=== PATIENT | female | born 1990 | race Caucasian/White ===

== ENCOUNTER 2022-02-07 10:24 | Outpatient (REF) | payer OTHER, SELFPAY ==
--- NOTE | ~2022-02-07 | XR_ITS ---
EXAMINATION: XR LUMBOSACRAL SPINE CLINICAL INFORMATION: Pain COMPARISON: None TECHNIQUE: Three views of the lumbosacral spine. FINDINGS: There is scoliosis of the lumbar spine to the left. Bone alignment is otherwise normal. No fracture or dislocation is seen. Disc spaces are normal. There may be lower lumbar spine facet arthritis. XR/XR lumbar spine 2-3V IMPRESSION: Scoliosis. Mild lower lumbar spine facet arthritis.
--- NOTE | ~2022-02-07 | XR_ITS ---
EXAMINATION: XR THORACOLUMBAR SPINE CLINICAL INFORMATION: Pain COMPARISON: None TECHNIQUE: 3 views of the thoracic spine including swimmer's view FINDINGS: There is scoliosis of the midthoracic spine to the right with apex at T7. There is curvature of the lower thoracic and upper lumbar spine to the left with apex at L2-L3. No fracture or dislocation is seen. Disc spaces are normal. Paraspinal soft tissues are normal. XR/XR thoracic spine 2V IMPRESSION: Scoliosis.
[2022-02-07 10:50] LABS: MANUAL DIFF FLAG NO
[2022-02-07 11:30] LABS: Hemoglobin 12.6 g/dl (12.0-16.0); Imm Gran Abs Auto 0.01 X10*3/uL (0.00-0.03); Imm Gran Pct Auto 0.3 % (0.0-0.4); Lymphocytes Absolute Auto 1.4 X10*3/uL (1.2-4.9); Lymphocytes Percent Auto 49.7 % (20-40); Mean Corpuscular HGB Conc 33.2 g/dl (31.0-35.0); Mean Corpuscular Volume 90.5 fL (80.0-98.0); Mean Platelet Volume 10.9 fL (9.4-12.3); Monocytes Absolute Auto 0.2 X10*3/uL (0.1-1.2); Monocytes Percent Auto 8.3 % (2-11); Neutrophils Absolute Auto 1.2 x10*3/uL (2.0-8.3); Neutrophils Percent Auto 39.7 % (45-73); Platelet Count 198 X10*3/uL (160-400); Red Cell Distribution Width 12.2 % (11.0-16.0); White Blood Count 2.9 X10*3/uL (4.8-10.8)
[2022-02-07 12:21] LABS: Anion Gap 11 (12-20); Blood Urea Nitrogen 9 mg/dL (9-16); Carbon Dioxide 23 mmol/L (22-29); Chloride 107 mmol/L (96-108); Cholesterol 143 mg/dL; Estimated Glomerular Filt Rate > 60; Glucose Fasting 79 mg/dL (60-99); HDL Cholesterol 45 mg/dL; LDL Cholesterol Calculated 89 mg/dl; Potassium 4.4 mmol/L (3.3-5.1); Sodium 137 mmol/L (135-145); Triglycerides 45 mg/dL
== END 2022-02-07 10:25 | disposition home or self-care (01) ==
LOC: HO.XRAY 10:24
PROVIDERS: Visit Provider Nurse Practitioner Family
DX: M54.9 Dorsalgia, unspecified (principal); I10 Essential (primary) hypertension; E78.00 Pure hypercholesterolemia, unspecified; Z76.89 Persons encountering health services in other specified circumstances
CPT/HCPCS: 36415; 72070; 72100; 80048; 80061; 85025

== ENCOUNTER → 2022-07-25 09:36 | Outpatient (BNVA) | payer SELFPAY | PROVIDERS: Visit Provider Internal Medicine | DX: Z02.79 Encounter for issue of other medical certificate (principal) ==

== ENCOUNTER 2022-09-24 17:07 | Observation (INO) | payer OTHER, SELFPAY ==
--- NOTE | ~2022-09-24 | US_ITS ---
EXAMINATION: US appendix CLINICAL INFORMATION: Reason for Exam RLQ ABD PAIN/FEVERS COMPARISON: None. TECHNIQUE: Targeted ultrasound of the right lower quadrant was performed utilizing a linear array transducer for evaluation of the appendix. FINDINGS: Blind-ending tubular structure in the right lower quadrant measuring up to 0.7 cm in diameter with mild hypervascularity suspicious for acute appendicitis. No increased echogenicity of the appendiceal fat or fluid collection. No free fluid identified in the right lower quadrant. US/US appendix IMPRESSION: Findings suspicious for acute appendicitis. No findings of perforation or abscess.
--- NOTE | ~2022-09-24 | CT_ITS ---
EXAMINATION: CT ABDOMEN AND PELVIS WITH CONTRAST CLINICAL INFORMATION: Right lower quadrant COMPARISON: Ultrasound performed 09/24/2022 TECHNIQUE: Multidetector volumetric images were obtained from the superior aspect of the liver through the pubic symphysis following administration 85 mL of Omnipaque 350 intravenous contrast. Sagittal and coronal reformatted images were obtained on the technologist's workstation. Oral contrast: No This CT examination was performed using dose optimization techniques as appropriate, variously including the following: *Automated exposure control *Adjustment of mA and/or kV according to patient size (this includes techniques or standardized protocols for targeted exams where dose is matched to indication/reason for exam; i.e. extremities or head) *Use of iterative reconstruction technique DLP: 821 mGy-cm FINDINGS: LUNG BASES: The visualized lung bases are unremarkable. LIVER, GALLBLADDER, AND BILIARY TREE: The liver is normal in size, shape, and attenuation. A small 1 cm cyst is noted just beneath the dome of the right hemidiaphragm. No focal hepatic lesion or biliary ductal dilatation is present. The gallbladder is unremarkable with no evidence of radiopaque gallstones, gallbladder wall thickening, or obvious pericholecystic inflammatory changes. PANCREAS: Unremarkable. SPLEEN: Unremarkable. ADRENAL GLANDS: Unremarkable. KIDNEYS AND URETERS: The kidneys are normal in size, shape, and attenuation. No hydronephrosis, hydroureter, or calculi seen. No perinephric stranding. BLADDER: Unremarkable. GASTROINTESTINAL TRACT: The small and large bowel are unremarkable. The appendix is mildly enlarged at 7 to 8 mm in size. There is no air within the appendix. There is no appendicolith. No periappendiceal inflammatory changes are seen. ABDOMINAL WALL: No significant hernia is appreciated. LYMPH NODES: No retroperitoneal lymphadenopathy VASCULAR: Unremarkable. The proximal left ovarian vein is dilated with reflux demonstrated. No large pelvic varices are seen. PELVIC VISCERA: The uterus and adnexa are unremarkable. The right ovary, there is enhancing small ovoid collapsed structure which may be a ruptured cyst measuring about 2 cm in size. No free intraperitoneal fluid. OSSEOUS STRUCTURES: Scoliosis convex to left. CT/CT abdomen pelvis w IV con IMPRESSION: 1. The appendix is mildly enlarged at 7 to 8 mm in size without air in the lumen. There is no appendicolith or periappendiceal inflammatory changes seen. Findings may represent early appendicitis. 2. Dilated proximal left ovarian vein with reflux. 3. Probable ruptured right ovarian cyst. 4. Incidental note made of benign hepatic cyst, scoliosis and degenerative changes in the spine. Fleischner guidelines were followed.
--- NOTE | ~2022-09-24 | US_ITS ---
EXAMINATION: US PELVIS CLINICAL INFORMATION: Right lower quadrant pain and fevers COMPARISON: Appendiceal ultrasound performed the same day TECHNIQUE: Ultrasound of the pelvis is performed using both transabdominal and transvaginal transducers along with Doppler. Transvaginal imaging is performed due to inadequate visualization transabdominally. FINDINGS: Uterus: The uterus is anteverted and measures 10.9 x 5.8 x 5.3 cm. Couple small nabothian cysts noted in the cervix. The double wall endometrial thickness is 1.7 mm. The uterus is smooth in contour and has normal myometrial echogenicity. No visible fibroid. Adnexa: Both ovaries are visualized. There is normal color flow to the adnexa. There is no ovarian torsion. There is no pelvic ascites or fluid collection. Right ovary measures 3.2 x 2.3 x 2.1, volume 8.1 mL. No cyst or mass identified. Left ovary measures 2.7 x 2.1 x 1.8, volume 5.3 mL. No cyst or mass identified. US/US pelvic ovarian doppler IMPRESSION: 1. Normal uterus and ovaries. No adnexal cyst or mass. No evidence of ovarian torsion. 2. No free pelvic fluid.
--- NOTE | ~2022-09-24 | US_ITS ---
EXAMINATION: US PELVIS CLINICAL INFORMATION: Right lower quadrant pain and fevers COMPARISON: Appendiceal ultrasound performed the same day TECHNIQUE: Ultrasound of the pelvis is performed using both transabdominal and transvaginal transducers along with Doppler. Transvaginal imaging is performed due to inadequate visualization transabdominally. FINDINGS: Uterus: The uterus is anteverted and measures 10.9 x 5.8 x 5.3 cm. Couple small nabothian cysts noted in the cervix. The double wall endometrial thickness is 1.7 mm. The uterus is smooth in contour and has normal myometrial echogenicity. No visible fibroid. Adnexa: Both ovaries are visualized. There is normal color flow to the adnexa. There is no ovarian torsion. There is no pelvic ascites or fluid collection. Right ovary measures 3.2 x 2.3 x 2.1, volume 8.1 mL. No cyst or mass identified. Left ovary measures 2.7 x 2.1 x 1.8, volume 5.3 mL. No cyst or mass identified. US/US pelvic complete IMPRESSION: 1. Normal uterus and ovaries. No adnexal cyst or mass. No evidence of ovarian torsion. 2. No free pelvic fluid.
[2022-09-24 17:23] VITALS: BP 128/79; PULSE 83; RESP 18; TEMP 36.7; O2SAT 100; BMI 20.2
--- NOTE | 2022-09-24 17:25 | ED_ITS ---
HPI - Abdominal Pain General Chief Complaint: Abdominal Pain <JABARI Cervantes - Last Filed: 09/24/22 17:28> Stated Complaint: abd pain <JABARI Cervantes - Last Filed: 09/24/22 17:28> Time Seen by Provider: 09/24/22 19:14 <JABARI Cervantes - Last Filed: 09/24/22 17:28> Source: patient <Daniel Reyes MD - Last Filed: 09/24/22 23:01> Limitations: no limitations <Daniel Reyes MD - Last Filed: 09/24/22 23:01> History of Present Illness HPI narrative: This is a 31-year-old female who complains of pain in her right lower abdomen since yesterday. Patient has had a fever. She has had poor appetite today. Pain is worse with certain movements and cough. She denies any nausea vomiting. She denies any dysuria or urinary frequency. She denies any constipation or diarrhea. She denies any significant past medical history. <Daniel Reyes MD - Last Filed: 09/24/22 23:01> Related Data Home Medications: Previous Rx's Medication Instructions Recorded naproxen 500 mg tablet 500 mg PO BID PRN pain #20 tabs 02/03/22 <JABARI Cervantes - Last Filed: 09/24/22 17:28> Allergies/Adverse Reactions: Allergies Allergy/AdvReac Type Severity Reaction Status Date / Time No Known Allergies Allergy Verified 02/03/22 15:14 <JABARI Cervantes - Last Filed: 09/24/22 17:28> Review of Systems Review of Systems Yes all other systems are reviewed and are negative <Daniel Reyes MD - Last Filed: 09/24/22 23:01> Constitutional: Reports as per HPI and Reports fever(s) <Daniel Reyes MD - Last Filed: 09/24/22 23:01> Eyes: Reports as per HPI and Reports no additional eye complaints <Daniel Reyes MD - Last Filed: 09/24/22 23:01> Reports system reviewed and no additional complaints, except as documented, Reports as per HPI, Denies nasal congestion, Denies nasal discharge and Denies sore throat <Daniel Reyes MD - Last Filed: 09/24/22 23:01> Cardiovascular: Reports as per HPI, Denies chest pain and Denies dyspnea <Daniel Reyes MD - Last Filed: 09/24/22 23:01> Respiratory: Reports as per HPI, Denies cough and Denies dyspnea <Daniel Reyes MD - Last Filed: 09/24/22 23:01> Gastrointestinal: Reports as per HPI, Reports abdominal pain, Denies diarrhea and Denies vomiting <Daniel Reyes MD - Last Filed: 09/24/22 23:01> Genitourinary: Reports as per HPI, Denies hematuria, Denies urinary frequency and Denies dysuria <Daniel Reyes MD - Last Filed: 09/24/22 23:01> Musculoskeletal: Reports no additional musculoskeletal complaints and Denies numbness <Daniel Reyes MD - Last Filed: 09/24/22 23:01> Skin/Breast: Reports as per HPI and Denies rash <Daniel Reyes MD - Last Filed: 09/24/22 23:01> Reports as per HPI, Denies focal weakness and Denies numbness <Daniel Reyes MD - Last Filed: 09/24/22 23:01> Psychiatric: Reports no additional psychiatric complaints and Reports as per HPI <Daniel Reyes MD - Last Filed: 09/24/22 23:01> Endocrine: Reports no additional endocrine complaints and Reports as per HPI <Daniel Reyes MD - Last Filed: 09/24/22 23:01> Hematologic/Lymphatic: Reports no additional hematologic/lymphatic complaints, Reports as per HPI and Reports other (No peripheral edema) <Daniel Reyes MD - Last Filed: 09/24/22 23:01> [facility] Past Medical History Medical History: Medical History (Updated 09/24/22 @ 23:01 by Daniel Reyes MD) Right lower quadrant pain <JABARI Cervantes - Last Filed: 09/24/22 17:28> Surgical History: Surgical History (Updated 02/03/22 @ 14:53 by CHELSIE Nielson) History of tubal ligation <JABARI Cervantes - Last Filed: 09/24/22 17:28> Social History Social History: Social History (Updated 02/03/22 @ 14:46 by CHELSIE Nielson) Housing: Apartment Alcohol intake: never Patient Tobacco Use Status: Never used Tobacco Smoked in Last 30 Days: No e-Cigarette/Vaping Use: Never Used Second Hand Smoke Exposure: No Advance Directives: No Advance Directives Information Provided: Yes service: No Current occupational status: unemployed Cognitive needs: No Hearing needs: No Vision needs: No <JABARI Cervantes - Last Filed: 09/24/22 17:28> Physical Exam ED Vital Signs: Vital Signs - 24 hr 09/24/22 17:23 09/24/22 20:09 09/24/22 22:42 Temperature 98.1 F 99.3 F 98.2 F Pulse Rate 83 84 72 Respiratory Rate 18 17 15 Blood Pressure 128/79 120/83 116/74 Pulse Oximetry 100 98 98 Oxygen Delivery Method Room Air Room Air Room Air BMI result Body Mass Index 20.2 <JABARI Cervantes - Last Filed: 09/24/22 17:28> Vital Signs - 24 hr 09/24/22 17:23 09/24/22 20:09 09/24/22 22:42 Temperature 98.1 F 99.3 F 98.2 F Pulse Rate 83 84 72 Respiratory Rate 18 17 15 Blood Pressure 128/79 120/83 116/74 Pulse Oximetry 100 98 98 Oxygen Delivery Method Room Air Room Air Room Air BMI result Body Mass Index 20.2 <Daniel Reyes MD - Last Filed: 09/24/22 23:01> Const General: no acute distress <Daniel Reyes MD - Last Filed: 09/24/22 23:01> Orientation/consciousness: patient oriented x3 <Daniel Reyes MD - Last Filed: 09/24/22 23:01> HENMT Head: Yes normal to inspection <Daniel Reyes MD - Last Filed: 09/24/22 23:01> General nose exam: Normal external nose present <Daniel Reyes MD - Last Filed: 09/24/22 23:01> Mouth: moist mucous membranes <Daniel Reyes MD - Last Filed: 09/24/22 23:01> Throat: Yes posterior oropharynx normal, Yes tonsils normal and Yes uvula midline <Daniel Reyes MD - Last Filed: 09/24/22 23:01> Eyes Eyelids: Yes eyelids normal <Daniel Reyes MD - Last Filed: 09/24/22 23:01> Conjunctivae: conjunctivae normal <Daniel Reyes MD - Last Filed: 09/24/22 23:01> Pupils: Equal, round and reactive pupils present <Daniel Reyes MD - Last Filed: 09/24/22 23:> Neck Neck: Yes supple <Daniel Reyes MD - Last Filed: 09/24/22 23:> Resp Effort & Inspection: normal respiratory effort <Daniel Reyes MD - Last Filed: 09/24/22 23:> Auscultation: clear to auscultation bilaterally <Daniel Reyes MD - Last Filed: 09/24/22 23:> Cardio Rate: regular rate <Daniel Reyes MD - Last Filed: 09/24/22 23:> Rhythm: regular rhythm <Daniel Reyes MD - Last Filed: 09/24/22 23:> Heart sounds: S1 normal heart sound present, S2 normal heart sound present, no gallops, no murmurs and no rubs <Daniel Reyes MD - Last Filed: 09/24/22 23:> GI Inspection: No distended <Daniel Reyes MD - Last Filed: 09/24/22 23:> Palpation (GI): Soft to palpation and Tenderness to palpation present (GI) in the RLQ and at McBurney's point; obturator sign negative and with no rebound tenderness <Daniel Reyes MD - Last Filed: 09/24/22 23:> Auscultation: Hypoactive bowel sounds present <Daniel Reyes MD - Last Filed: 09/24/22 23:> Skin General skin exam: other (Warm and dry) <Daniel Reyes MD - Last Filed: 09/24/22 23:> Neuro General: patient oriented x3 and CN's II-XI intact bilaterally <Daniel Reyes MD - Last Filed: 09/24/22 23:> Cranial nerves: Yes Equal, round and reactive pupils present <Daniel Reyes MD - Last Filed: 09/24/22 23:> Extrem General: Yes no pedal edema <Daniel Reyes MD - Last Filed: 09/24/22 23:01> Psych Affect: normal affect <Daniel Reyes MD - Last Filed: 09/24/22 23:> Attitude: cooperative <Daniel Reyes MD - Last Filed: 09/24/22 23:01> Course Course Course Narrative: KEMAL-17:30PM - 31yoF who is Macedonian-speaking presenting to the ED with complaints of right lower quadrant abdominal pain with fevers up to 102.0, chills and nausea since last night. Worse with walking or palpation. She reports she still has her appendix. She reports she does have a slight cough and her daughter also has a slight cough. She denies any other symptoms related to this. Plan: Will obtain labs, appendix ultrasound, ovarian/Doppler ultrasound, UA, COVID/RSV/flu swab. Patient will be sent back to the waiting room to be evaluated in the ED for further evaluation treatment. <JABARI Cervantes - Last Filed: 09/24/22 17:28> Medical Decision Making Medical Decision Making MDM Narrative: Patient with right lower quadrant pain since yesterday. Patient has had a fever, did test COVID positive. Patient denied knowing that she had COVID. Patient has had poor appetite today and does have tenderness in the right lower quadrant, most pronounced at McBurney's point. White blood cell count is normal. Ultrasound did show equivocal evidence for appendicitis. CT scan showed possible early appendicitis. There is no appendicolith no air in the appendix only mild dilatation. Ultrasound of the pelvis did not show any ovarian cysts or free fluid, though the CT report mentioned possible ruptured right ovarian cyst. Surgical consultation was ordered, and Dr. Key has evaluated the patient and the patient is to be admitted for observation. Patient does have 1+ leukocyte esterase on her urine dip but only 0-2 white blood cells per high-power field, has no urinary symptoms, do not believe she has UTI. <Daniel Reyes MD - Last Filed: 09/24/22 23:01> Differential Diagnosis Appendicitis, mesenteric adenitis, ureteral colic, ruptured ovarian cyst, PID, cervicitis, UTI, pyelonephritis <Daniel Reyes MD - Last Filed: 09/24/22 23:01> Admission/Observation Consideration of admission/observation: Escalation of care including admission/observation considered <Daniel Reyes MD - Last Filed: 09/24/22 23:01> Consult Healthcare Provider Management of the patient was discussed with: [employer] (General surgery) <Daniel Reyes MD - Last Filed: 09/24/22 23:01> Lab Data MDM Lab Attestation statement: I reviewed the patient's lab results. <Daniel Reyes MD - Last Filed: 09/24/22 23:01> Result Diagrams: : 09/24/22 17:43 09/24/22 17:43 <JABARI Cervantes - Last Filed: 09/24/22 17:28> Labs: Lab Results 09/24/22 09/24/22 09/24/22 Range/Units 17:43 17:43 17:43 WBC 4.4 L (4.8-10.8) X10*3/uL RBC 4.24 (4.20-5.50) X10*6/uL Hgb 12.5 (12.0-16.0) g/dl Hct 37.5 (37.0-47.0) % MCV 88.4 (80.0-98.0) fL MCH 29.5 (27.0-33.0) pg MCHC 33.3 (31.0-35.0) g/dl RDW 12.0 (11.0-16.0) % Plt Count 184 (160-400) X10*3/uL MPV 10.1 (9.4-12.3) fL Immature Gran % (Auto) 0.2 (0.0-0.4) % Neut % (Auto) 51.7 (45-73) % Lymph % (Auto) 36.1 (20-40) % Johnson % (Auto) 5.2 (2-11) % Eos % (Auto) 5.9 H (0-4) % Baso % (Auto) 0.9 (0-2) % Lymph # (Auto) 1.6 (1.2-4.9) X10*3/uL Johnson # (Auto) 0.2 (0.1-1.2) X10*3/uL Eos # (Auto) 0.3 (0.0-0.4) X10*3/uL Baso # (Auto) 0.0 (0.0-0.2) X10*3/uL Abs Immat Gran (auto) 0.01 (0.00-0.03) X10*3/uL Absolute Neuts (auto) 2.3 (2.0-8.3) x10*3/uL Absolute Nucleated RBC 0.000 (0.0-0.012) X10*3/uL Nucleated RBC % (auto) 0.0 (0.0-0.2) /100WBC PT 11.5 (10.0-13.1) SEC INR 1.0 (0.9-1.1) Sodium 138 (135-145) mmol/L Potassium 3.7 (3.3-5.1) mmol/L Chloride 108 (96-108) mmol/L Carbon Dioxide 24 (22-29) mmol/L Anion Gap 10 L (12-20) BUN 12 (9-16) mg/dL Creatinine 0.80 (0.5-1.4) mg/dL Estim Creat Clear Calc 95.8 Estimated GFR > 60 Random Glucose 71 (60-115) mg/dL Calcium 8.3 L D (8.4-10.2) mg/dL Magnesium 2.1 (1.6-2.6) mg/dL Total Bilirubin 0.2 (0.0-1.0) mg/dL AST 14 (5-31) U/L ALT 10 (0-31) U/L Alkaline Phosphatase 61 (39-117) U/L Total Protein 6.6 (6.5-8.0) g/dL Albumin 3.9 (3.5-5.0) g/dL Lipase 12 (8-78) U/L Beta HCG, Quant < 2 mIU/mL Urine Color Urine Appearance Urine pH (5.0-9.0) Ur Specific [place] (1.005-1.025) Urine Protein (Neg-Trace) mg/dL Urine Glucose (UA) (Negative) mg/dL Urine Ketones (Negative) mg/dL Urine Blood (Negative) Urine Nitrite (Negative) Ur Leukocyte Esterase (Negative) Urine RBC (0-2) /HPF Urine WBC (0-5) /HPF Ur Squamous Epith Cells (0-2) /HPF Urine Bacteria (None Seen) Hyaline Casts (0-2) /LPF Influenza Type A (PCR) (Negative) Influenza Type B (PCR) (Negative) RSV RNA Qual (PCR) (Negative) SARS-CoV-2 RNA (RT-PCR) (Negative) 09/24/22 09/24/22 Range/Units 17:43 17:43 WBC (4.8-10.8) X10*3/uL RBC (4.20-5.50) X10*6/uL Hgb (12.0-16.0) g/dl Hct (37.0-47.0) % MCV (80.0-98.0) fL MCH (27.0-33.0) pg MCHC (31.0-35.0) g/dl RDW (11.0-16.0) % Plt Count (160-400) X10*3/uL MPV (9.4-12.3) fL Immature Gran % (Auto) (0.0-0.4) % Neut % (Auto) (45-73) % Lymph % (Auto) (20-40) % Johnson % (Auto) (2-11) % Eos % (Auto) (0-4) % Baso % (Auto) (0-2) % Lymph # (Auto) (1.2-4.9) X10*3/uL Johnson # (Auto) (0.1-1.2) X10*3/uL Eos # (Auto) (0.0-0.4) X10*3/uL Baso # (Auto) (0.0-0.2) X10*3/uL Abs Immat Gran (auto) (0.00-0.03) X10*3/uL Absolute Neuts (auto) (2.0-8.3) x10*3/uL Absolute Nucleated RBC (0.0-0.012) X10*3/uL Nucleated RBC % (auto) (0.0-0.2) /100WBC PT (10.0-13.1) SEC INR (0.9-1.1) Sodium (135-145) mmol/L Potassium (3.3-5.1) mmol/L Chloride (96-108) mmol/L Carbon Dioxide (22-29) mmol/L Anion Gap (12-20) BUN (9-16) mg/dL Creatinine (0.5-1.4) mg/dL Estim Creat Clear Calc Estimated GFR Random Glucose (60-115) mg/dL Calcium (8.4-10.2) mg/dL Magnesium (1.6-2.6) mg/dL Total Bilirubin (0.0-1.0) mg/dL AST (5-31) U/L ALT (0-31) U/L Alkaline Phosphatase (39-117) U/L Total Protein (6.5-8.0) g/dL Albumin (3.5-5.0) g/dL Lipase (8-78) U/L Beta HCG, Quant mIU/mL Urine Color Yellow Urine Appearance Cloudy Urine pH 5.5 (5.0-9.0) Ur Specific [place] 1.015 (1.005-1.025) Urine Protein Trace (Neg-Trace) mg/dL Urine Glucose (UA) Negative (Negative) mg/dL Urine Ketones Negative (Negative) mg/dL Urine Blood Negative (Negative) Urine Nitrite Negative (Negative) Ur Leukocyte Esterase Small (1+) H (Negative) Urine RBC 0-2 (0-2) /HPF Urine WBC 0-5 (0-5) /HPF Ur Squamous Epith Cells 3-5 (0-2) /HPF Urine Bacteria None Seen (None Seen) Hyaline Casts 3-5 (0-2) /LPF Influenza Type A (PCR) NEGATIVE (Negative) Influenza Type B (PCR) NEGATIVE (Negative) RSV RNA Qual (PCR) NEGATIVE (Negative) SARS-CoV-2 RNA (RT-PCR) POSITIVE A (Negative) <JABARI Cervantes - Last Filed: 09/24/22 17:28> Lab Results 09/24/22 09/24/22 09/24/22 Range/Units 17:43 17:43 17:43 WBC 4.4 L (4.8-10.8) X10*3/uL RBC 4.24 (4.20-5.50) X10*6/uL Hgb 12.5 (12.0-16.0) g/dl Hct 37.5 (37.0-47.0) % MCV 88.4 (80.0-98.0) fL MCH 29.5 (27.0-33.0) pg MCHC 33.3 (31.0-35.0) g/dl RDW 12.0 (11.0-16.0) % Plt Count 184 (160-400) X10*3/uL MPV 10.1 (9.4-12.3) fL Immature Gran % (Auto) 0.2 (0.0-0.4) % Neut % (Auto) 51.7 (45-73) % Lymph % (Auto) 36.1 (20-40) % Johnson % (Auto) 5.2 (2-11) % Eos % (Auto) 5.9 H (0-4) % Baso % (Auto) 0.9 (0-2) % Lymph # (Auto) 1.6 (1.2-4.9) X10*3/uL Johnson # (Auto) 0.2 (0.1-1.2) X10*3/uL Eos # (Auto) 0.3 (0.0-0.4) X10*3/uL Baso # (Auto) 0.0 (0.0-0.2) X10*3/uL Abs Immat Gran (auto) 0.01 (0.00-0.03) X10*3/uL Absolute Neuts (auto) 2.3 (2.0-8.3) x10*3/uL Absolute Nucleated RBC 0.000 (0.0-0.012) X10*3/uL Nucleated RBC % (auto) 0.0 (0.0-0.2) /100WBC PT 11.5 (10.0-13.1) SEC INR 1.0 (0.9-1.1) Sodium 138 (135-145) mmol/L Potassium 3.7 (3.3-5.1) mmol/L Chloride 108 (96-108) mmol/L Carbon Dioxide 24 (22-29) mmol/L Anion Gap 10 L (12-20) BUN 12 (9-16) mg/dL Creatinine 0.80 (0.5-1.4) mg/dL Estim Creat Clear Calc 95.8 Estimated GFR > 60 Random Glucose 71 (60-115) mg/dL Calcium 8.3 L D (8.4-10.2) mg/dL Magnesium 2.1 (1.6-2.6) mg/dL Total Bilirubin 0.2 (0.0-1.0) mg/dL AST 14 (5-31) U/L ALT 10 (0-31) U/L Alkaline Phosphatase 61 (39-117) U/L Total Protein 6.6 (6.5-8.0) g/dL Albumin 3.9 (3.5-5.0) g/dL Lipase 12 (8-78) U/L Beta HCG, Quant < 2 mIU/mL Urine Color Urine Appearance Urine pH (5.0-9.0) Ur Specific [place] (1.005-1.025) Urine Protein (Neg-Trace) mg/dL Urine Glucose (UA) (Negative) mg/dL Urine Ketones (Negative) mg/dL Urine Blood (Negative) Urine Nitrite (Negative) Ur Leukocyte Esterase (Negative) Urine RBC (0-2) /HPF Urine WBC (0-5) /HPF Ur Squamous Epith Cells (0-2) /HPF Urine Bacteria (None Seen) Hyaline Casts (0-2) /LPF Influenza Type A (PCR) (Negative) Influenza Type B (PCR) (Negative) RSV RNA Qual (PCR) (Negative) SARS-CoV-2 RNA (RT-PCR) (Negative) 09/24/22 09/24/22 Range/Units 17:43 17:43 WBC (4.8-10.8) X10*3/uL RBC (4.20-5.50) X10*6/uL Hgb (12.0-16.0) g/dl Hct (37.0-47.0) % MCV (80.0-98.0) fL MCH (27.0-33.0) pg MCHC (31.0-35.0) g/dl RDW (11.0-16.0) % Plt Count (160-400) X10*3/uL MPV (9.4-12.3) fL Immature Gran % (Auto) (0.0-0.4) % Neut % (Auto) (45-73) % Lymph % (Auto) (20-40) % Johnson % (Auto) (2-11) % Eos % (Auto) (0-4) % Baso % (Auto) (0-2) % Lymph # (Auto) (1.2-4.9) X10*3/uL Johnson # (Auto) (0.1-1.2) X10*3/uL Eos # (Auto) (0.0-0.4) X10*3/uL Baso # (Auto) (0.0-0.2) X10*3/uL Abs Immat Gran (auto) (0.00-0.03) X10*3/uL Absolute Neuts (auto) (2.0-8.3) x10*3/uL Absolute Nucleated RBC (0.0-0.012) X10*3/uL Nucleated RBC % (auto) (0.0-0.2) /100WBC PT (10.0-13.1) SEC INR (0.9-1.1) Sodium (135-145) mmol/L Potassium (3.3-5.1) mmol/L Chloride (96-108) mmol/L Carbon Dioxide (22-29) mmol/L Anion Gap (12-20) BUN (9-16) mg/dL Creatinine (0.5-1.4) mg/dL Estim Creat Clear Calc Estimated GFR Random Glucose (60-115) mg/dL Calcium (8.4-10.2) mg/dL Magnesium (1.6-2.6) mg/dL Total Bilirubin (0.0-1.0) mg/dL AST (5-31) U/L ALT (0-31) U/L Alkaline Phosphatase (39-117) U/L Total Protein (6.5-8.0) g/dL Albumin (3.5-5.0) g/dL Lipase (8-78) U/L Beta HCG, Quant mIU/mL Urine Color Yellow Urine Appearance Cloudy Urine pH 5.5 (5.0-9.0) Ur Specific [place] 1.015 (1.005-1.025) Urine Protein Trace (Neg-Trace) mg/dL Urine Glucose (UA) Negative (Negative) mg/dL Urine Ketones Negative (Negative) mg/dL Urine Blood Negative (Negative) Urine Nitrite Negative (Negative) Ur Leukocyte Esterase Small (1+) H (Negative) Urine RBC 0-2 (0-2) /HPF Urine WBC 0-5 (0-5) /HPF Ur Squamous Epith Cells 3-5 (0-2) /HPF Urine Bacteria None Seen (None Seen) Hyaline Casts 3-5 (0-2) /LPF Influenza Type A (PCR) NEGATIVE (Negative) Influenza Type B (PCR) NEGATIVE (Negative) RSV RNA Qual (PCR) NEGATIVE (Negative) SARS-CoV-2 RNA (RT-PCR) POSITIVE A (Negative) <Daniel Reyes MD - Last Filed: 09/24/22 23:01> Radiology Impression Discussion of test interpretation with radiology: I have reviewed the radiologist's reading. <Daniel Reyes MD - Last Filed: 09/24/22 23:01> Radiologist Impression: Ultrasound appendix: FINDINGS: Blind-ending tubular structure in the right lower quadrant measuring up to 0.7 cm in diameter with mild hypervascularity suspicious for acute appendicitis. No increased echogenicity of the appendiceal fat or fluid collection. No free fluid identified in the right lower quadrant. Ultrasound pelvis: IMPRESSION: 1.? Normal uterus and ovaries. No adnexal cyst or mass. No evidence of ovarian torsion. 2.? No free pelvic fluid. ? US/US appendix IMPRESSION: Findings suspicious for acute appendicitis. No findings of perforation or abscess. CT abdomen pelvis with IV contrast IMPRESSION: 1.? The appendix is mildly enlarged at 7 to 8 mm in size without air in the lumen. There is no appendicolith or periappendiceal inflammatory changes seen. Findings may represent early appendicitis. 2.? Dilated proximal left ovarian vein with reflux. 3.? Probable ruptured right ovarian cyst. 4.? Incidental note made of benign hepatic cyst, scoliosis and degenerative changes in the spine. <Daniel Reyes MD - Last Filed: 09/24/22 23:01> Prescription Management I considered prescription management with: Pain Medication and Antibiotic <Daniel Reyes MD - Last Filed: 09/24/22 23:01> Medications Administered Generic Name Dose Route Start Last Admin Trade Name Freq PRN Reason Stop Dose Admin Lactated Ringer's 1,000 mls @ 100 mls/hr 09/24/22 22:45 09/24/22 22:41 Lr IVCONT 100 mls/hr .Q10H ELAINA Administration Discontinued Medications Generic Name Dose Route Start Last Admin Trade Name Freq PRN Reason Stop Dose Admin Iohexol 100 ml 09/24/22 20:31 09/24/22 20:32 Iohexol 350 Mg/Ml 100 Ml Infus..Btl IV 09/24/22 20:32 85 ml ONCE ONE Administration <JABARI Cervantes - Last Filed: 09/24/22 17:28> Medications Administered Generic Name Dose Route Start Last Admin Trade Name Freq PRN Reason Stop Dose Admin Lactated Ringer's 1,000 mls @ 100 mls/hr 09/24/22 22:45 09/24/22 22:41 Lr IVCONT 100 mls/hr .Q10H ELAINA Administration Discontinued Medications Generic Name Dose Route Start Last Admin Trade Name Freq PRN Reason Stop Dose Admin Iohexol 100 ml 09/24/22 20:31 09/24/22 20:32 Iohexol 350 Mg/Ml 100 Ml Infus..Btl IV 09/24/22 20:32 85 ml ONCE ONE Administration <Daniel Reyes MD - Last Filed: 09/24/22 23:01> Discharge Plan Discharge Clinical Impression: Abdominal pain, right lower quadrant, COVID <JABARI Cervantes - Last Filed: 09/24/22 17:28> Patient Disposition: Admitted as Observation <JABARI Cervantes - Last Filed: 09/24/22 17:28> Prescriptions: No Action naproxen 500 mg tablet 500 mg PO BID PRN (Reason: pain) Qty: 20 0RF <JABARI Cervantes - Last Filed: 09/24/22 17:28>
[2022-09-24 17:49] LABS: MANUAL DIFF FLAG NO
[2022-09-24 17:51] LABS: Appearance Urine Cloudy; Basophils Percent Auto 0.9 % (0-2); Color Urine Yellow; Eosinophils Absolute Auto 0.3 X10*3/uL (0.0-0.4); Eosinophils Percent Auto 5.9 % (0-4); Glucose Urine UA Negative (Negative); Hematocrit 37.5 % (37.0-47.0); Hemoglobin 12.5 g/dl (12.0-16.0); Imm Gran Abs Auto 0.01 X10*3/uL (0.00-0.03); Imm Gran Pct Auto 0.2 % (0.0-0.4); Leukocyte Esterase Urine Small (1+) (Negative); Lymphocytes Absolute Auto 1.6 X10*3/uL (1.2-4.9); Lymphocytes Percent Auto 36.1 % (20-40); Mean Corpuscular HGB Conc 33.3 g/dl (31.0-35.0); Mean Corpuscular Hemoglobin 29.5 pg (27.0-33.0); Mean Corpuscular Volume 88.4 fL (80.0-98.0); Mean Platelet Volume 10.1 fL (9.4-12.3); Monocytes Absolute Auto 0.2 X10*3/uL (0.1-1.2); Monocytes Percent Auto 5.2 % (2-11); Neutrophils Absolute Auto 2.3 x10*3/uL (2.0-8.3); Neutrophils Percent Auto 51.7 % (45-73); Nitrite Urine Negative (Negative); PH 5.5 (5.0-9.0); Platelet Count 184 X10*3/uL (160-400); Red Blood Count 4.24 X10*6/uL (4.20-5.50); Specific Gravity - Urine 1.015 (1.005-1.025); UMIC TRIGGER UACC YES; Urine Blood Negative (Negative); Urine Ketones Negative (Negative); Urine Protein Trace mg/dL (Neg-Trace); White Blood Count 4.4 X10*3/uL (4.8-10.8)
--- OUTSIDE RECORDS SUMMARY | 2022-09-24 17:51 | XMS_ITS | Continuity of Care Document ---
:1990 Author Organization [facility] ic Address [address] [place] [id number]- Care Team Providers Name Role Phone Shawnee Love Primary Care Physician Encounter [facility] Date(s): 05/05/20 - 06/04/[address] [address]- [facility] Allergies, Adverse Reactions, Alerts Substance Reaction Severity Status NKA Active Medications doxylamine 25 mg oral tablet See Instructions, one half tablet 2 x day, # 8 tablet, 1 Refills, Maintenance, 05/26/20 13:38:00 EDT, [facility] #[id number] Start Date: 05/26/20 Status: OrderedPrenatal Multivitamins By Mouth, Daily, 0 Refills, Maintenance, 04/21/20 16:06:00 EDT Start Date: 04/21/20 Status: Orderedpyridoxine 25 mg oral tablet 1 tablet = 25 mg, By Mouth, 3 times a day, for 7 days, # 21 tablet, 1 Refills, Acute 06/09/20 13:38:00 EDT, 05/26/20 13:38:00 EDT Start Date: 05/26/20 Stop Date: 06/09/20 Status: Ordered Problem List Condition Effective Dates Status Health Status Informant Scoliosis(Confirmed) Active Social History Social History Type Response Smoking Status Never (less than 100 in life time) entered on: 04/21/20 Sex Female
--- OUTSIDE RECORDS SUMMARY | 2022-09-24 17:51 | XMS_ITS | Continuity of Care Document ---
:1990 Author Organization [facility] Address [address] [place] [id number]- Care Team Providers Name Role Phone Shawnee Love Primary Care Physician Encounter [facility] Date(s): 05/13/20 - 06/12/[address] [address]- [facility] Allergies, Adverse Reactions, Alerts Substance Reaction Severity Status NKA Active Medications doxylamine 25 mg oral tablet See Instructions, one half tablet 2 x day, # 8 tablet, 1 Refills, Maintenance, 05/26/20 13:38:00 EDT, [facility] #[id number] Start Date: 05/26/20 Status: OrderedPrenatal Multivitamins By Mouth, Daily, 0 Refills, Maintenance, 04/21/20 16:06:00 EDT Start Date: 04/21/20 Status: Ordered Problem List Condition Effective Dates Status Health Status Informant Scoliosis(Confirmed) Active Social History Social History Type Response Smoking Status Never (less than 100 in life time) entered on: 04/21/20 Sex Female
--- OUTSIDE RECORDS SUMMARY | 2022-09-24 17:51 | XMS_ITS | Continuity of Care Document ---
:1990 Author Organization [facility] Address [address] [place] [phone]- Care Team Providers Name Role Phone Po Kari METCALF Primary Care Physician Encounter [facility] [place] Date(s): 01/14/22 - 02/19/[address] [address] Attending Physician: Connie Navarrete MD Admitting Physician: Connie Navarrete MD Referring Physician: Connie Navarrete MD Allergies, Adverse Reactions, Alerts No Known Allergies Immunizations Given and Recorded Vaccine Date Status Refusal Reason tetanus/diphtheria/pertussis, acel(Tdap) 10/21/20 Given influenza virus vaccine, inactivated 07/21/20 Given Medications acetaminophen 325 mg oral tablet 650 mg, 2, tablet, By Mouth, Every 4 hours, PRN, # 50 tablet, Refills 1, Tot. Refills 1, Maintenance, Pain , Mild, 12/14/20 8:06:00 EST, Route to Pharmacy Electronically, [facility]/pharmacy #[id number], Partial fill upon patient request if the prescription is for... Start Date: 12/14/20 Status: Orderedacetaminophen 325 mg oral tablet 650 mg, By Mouth, Every 6 hours, PRN, not to exceed 4000 mg/day, # 50 tablet, Refills 0, Tot. Refills 0, Maintenance, Pain , Mild, 02/04/21 13:42:00 EDT, Route to Pharmacy Electronically, [facility]/pharmacy #[id number], Partial fill upon patient request if the pr... Start Date: 02/04/21 Status: Ordereddocusate sodium 100 mg oral capsule 1 capsule = 100 mg, By Mouth, 2 times a day, PRN Constipation, # 60 capsule, 0 Refills, Maintenance,12/14/20 8:04:00 EST, Capsule, [facility]/pharmacy #[id number], Partial fill upon patient request if the prescription is for a schedule II opioid drug., 170, cm, 0... Start Date: 12/14/20 Status: Orderedibuprofen 600 mg oral tablet 600 mg, 1, tablet, By Mouth, Every 6 hours, # 40 tablet, Refills 1, Tot. Refills 1, Maintenance, 12/14/20 8:05:00 EST, Route to Pharmacy Electronically, [facility]/pharmacy #[id number], Partial fill upon patient request if the prescription is for a schedule II opi... Start Date: 12/14/20 Status: Orderedibuprofen 800 mg oral tablet 800 mg, 1, tablet, By Mouth, Every 8 hours, not to exceed 3200 mg/day, # 30 tablet, Refills 0, Tot. Refills 0, Maintenance, 02/04/21 13:41:00 EDT, Route to Pharmacy Electronically, [facility]/pharmacy #[id number], Partial fill upon patient request if the prescript... Start Date: 02/04/21 Status: OrderedmedroxyPROGESTERone 150 mg/mL intramuscular suspension 1 mL = 150 mg, Intramuscular, On Discharge, 0 Refills, Maintenance, 12/14/20 8:05:00 EST, Injection,Partial fill upon patient request if the prescription is for a schedule II opioid drug. Start Date: 12/14/20 Status: OrderedoxyCODONE 5 mg oral capsule 1 capsule = 5 mg, By Mouth, Every 6 hours, PRN as needed for pain, # 10 capsule, 0 Refills, Maintenance, 02/04/21 13:42:00 EDT, Capsule, [facility]/pharmacy #[id number], Partial fill upon patient request if the prescription is for a schedule II opioid drug., 170,... Start Date: 02/04/21 Status: OrderedPrenatal Multivitamins By Mouth, Daily, 0 Refills, Maintenance, 04/21/20 16:06:00 EDT Start Date: 04/21/20 Status: Ordered Problem List Condition Effective Dates Status Health Status Informant ASCUS of cervix with negative high Active risk HPV(Confirmed) Non-Serbian speaking Active patient(Confirmed) (Confirmed) Active Scoliosis(Confirmed) Active Social History Social History Type Response Smoking Status Never (less than 100 in life time) entered on: 04/21/20 Sex Female
--- OUTSIDE RECORDS SUMMARY | 2022-09-24 17:51 | XMS_ITS | Continuity of Care Document ---
:1990 Author Organization [facility] Address [address] [place] [phone]- Care Team Providers Name Role Phone Kari Guan MD Primary Care Physician [place] [facility] [place] 02/04[place] - 02/04/[address] [address] Discharge Disposition: A-D/C Home Attending Physician: Paloma Elam MD Admitting Physician: Paloma Elam MD Referring Physician: Paloma Elam MD Allergies, Adverse Reactions, Alerts Substance Reaction Severity Status NKA Active Immunizations Given and Recorded Vaccine Date Status Refusal Reason tetanus/diphtheria/pertussis, acel(Tdap) 10/21/20 Given influenza virus vaccine, inactivated 07/21/20 Given Medications acetaminophen 325 mg oral tablet 650 mg, 2, tablet, By Mouth, Every 4 hours, PRN, # 50 tablet, Refills 1, Tot. Refills 1, Maintenance, Pain , Mild, 12/14/20 8:06:00 EST, Route to Pharmacy Electronically, [facility]/pharmacy #[id number], Partial fill upon patient request if the prescription is for... Start Date: 12/14/20 Status: Orderedacetaminophen 325 mg oral tablet 650 mg, By Mouth, Every 6 hours, PRN, not to exceed 4000 mg/day, # 50 tablet, Refills 0, Tot. Refills 0, Maintenance, Pain , Mild, 02/04/21 13:42:00 EDT, Route to Pharmacy Electronically, [facility]/pharmacy #[id number], Partial fill upon patient request if the pr... Start Date: 02/04/21 Status: Ordereddocusate sodium 100 mg oral capsule 1 capsule = 100 mg, By Mouth, 2 times a day, PRN Constipation, # 60 capsule, 0 Refills, Maintenance,12/14/20 8:04:00 EST, Capsule, [facility]/pharmacy #[id number], Partial fill upon patient request if the prescription is for a schedule II opioid drug., 170, cm, 0... Start Date: 12/14/20 Status: Orderedibuprofen 600 mg oral tablet 600 mg, 1, tablet, By Mouth, Every 6 hours, # 40 tablet, Refills 1, Tot. Refills 1, Maintenance, 12/14/20 8:05:00 EST, Route to Pharmacy Electronically, [facility]/pharmacy #[id number], Partial fill upon patient request if the prescription is for a schedule II opi... Start Date: 12/14/20 Status: Orderedibuprofen 800 mg oral tablet 800 mg, 1, tablet, By Mouth, Every 8 hours, not to exceed 3200 mg/day, # 30 tablet, Refills 0, Tot. Refills 0, Maintenance, 02/04/21 13:41:00 EDT, Route to Pharmacy Electronically, [facility]/pharmacy #[id number], Partial fill upon patient request if [...] 0 Refills, Maintenance, 02/04/21 13:42:00 EDT, Capsule, [facility]/pharmacy #[id number], Partial fill upon patient request if the prescription is for a schedule II opioid drug., 170,... Start Date: 02/04/21 Status: OrderedOxyCODONE IR Tablet 5 mg, Tablet, By Mouth, Every 4 hours, in PACU ONLY, if patient can tolerate PO, PRN for Pain , Mild, Routine, 02/04/21 14:08:00 EDT Start Date: 02/04/21 Stop Date: 02/05/21 Status: DiscontinuedPrenatal Multivitamins By Mouth, Daily, 0 Refills, Maintenance, 04/21/20 16:06:00 EDT Start Date: 04/21/20 Status: Ordered Problem List Condition Effective Dates Status Health Status Informant ASCUS of cervix with negative high Active risk HPV(Confirmed) Non-Ugandan speaking Active patient(Confirmed) (Confirmed) Active Scoliosis(Confirmed) Active Vital Signs Most recent to oldest 1 2 3 [Reference Range]: Weight 71.1 kg (02/04/21 12:53 PM) Oxygen Saturation [94-100 %] 99 % 99 % 100 % (02/04/21 5:00 PM) (02/04/21 4:45 PM) (02/04/21 4:3 0 PM) Pulse Rate [55-90 bpm] 80 bpm (02/04/21 12:53 PM) Blood Pressure [90-138/55-84 109/85 mm Hg 115/74 mm Hg 115 /82 mm Hg mm Hg] (02/04/21 5:00 PM) (02/04/21 4:45 PM) (02/04/21 4:3 0 PM) Respiratory Rate [16-30 16 br/min 17 br/min 11 br/mi n br/min] (02/04/21 5:08 PM) (02/04/21 5:00 PM) *L* (02/04/21 4:45 PM ) Temperature [96.8-100.4 DegF] 98.4 DegF 97.6 DegF 97 .6 DegF (02/04/21 4:45 PM) (02/04/21 3:19 PM) (02/04/21 12: 53 PM) Liters per Minute 4 L/min 4 L/min 4 L/min (02/04/21 4:15 PM) (02/04/21 3:45 PM) (02/04/21 3:3 0 PM) Mode of Delivery (Oxygen) Room air Room air Room a ir (02/04/21 5:30 PM) (02/04/21 5:00 PM) (02/04/21 4:3 0 PM) Blood pressure sites Arm, left (02/04/21 12:53 PM) Temperature Route Temporal Temporal Temporal (02/04/21 4:45 PM) (02/04/21 3:19 PM) (02/04/21 12: 53 PM) Dry Weight 71.1 kg (02/04/21 12:53 PM) Weight Obtained Via Standing scale (02/04/21 12:53 PM) Social History Social History Type Response Smoking Status Never (less than 100 in life time) entered on: 04/21/20 Sex Female
--- OUTSIDE RECORDS SUMMARY | 2022-09-24 17:51 | XMS_ITS | Continuity of Care Document ---
:1990 Author Organization [facility] Address [address] [place] [address], [address] [place] [address]- Care Team Providers Name Role Phone Shawnee Love Primary Care Physician Encounter [facility] Date(s): 06/05/20 - 07/05/20 [facility] [address] [place] [address], [address] [place] [phone] [facility] Allergies, Adverse Reactions, Alerts Substance Reaction Severity Status NKA Active Medications doxylamine 25 mg oral tablet See Instructions, one half tablet 2 x day, # 8 tablet, 1 Refills, Maintenance, 05/26/20 13:38:00 EDT[id number] Start Date: 05/26/20 Status: OrderedPrenatal Multivitamins By Mouth, Daily, 0 Refills, Maintenance, 04/21/20 16:06:00 EDT Start Date: 04/21/20 Status: Ordered Problem List Condition Effective Dates Status Health Status Informant Scoliosis(Confirmed) Active Social History Social History Type Response Smoking Status Never (less than 100 in life time) entered on: 04/21/20 Sex Female
--- OUTSIDE RECORDS SUMMARY | 2022-09-24 17:51 | XMS_ITS | Continuity of Care Document ---
:1990 Author Organization [facility] Address [address] [place] [address]- Care Team Providers Name Role Phone Po Kari METCALF Primary Care Physician Encounter [facility] [place] Date(s): 11/26/20 - 01/16/[address] [address]- Attending Physician: Tatyana Montejo CNM Admitting Physician: Tatyana Montejo CNM Allergies, Adverse Reactions, Alerts Substance Reaction Severity [...] 12/14/20 8:06:00 EST, Route to Pharmacy Electronically, [facility]/pharmacy #[id number], Partial fill upon patient request if the prescription is for... Start Date: 12/14/20 Status: Ordereddocusate sodium 100 mg oral capsule 1 capsule = 100 mg, By Mouth, 2 times a day, PRN Constipation, # 60 capsule, 0 Refills, Maintenance,12/14/20 8:04:00 EST, Capsule, [facility]/pharmacy #[id number], Partial fill upon patient request if the prescription is for a schedule II opioid drug., 170, cm, 0... Start Date: 12/14/20 Status: Orderedibuprofen 600 mg oral tablet 600 mg, 1, tablet, By Mouth, Every 6 hours, # 40 tablet, Refills 1, Tot. Refills 1, Maintenance, 12/14/20 8:05:00 EST, Route to Pharmacy Electronically, [facility]/pharmacy #[id number], Partial fill upon patient request if the prescription is for a schedule II opi... Start Date: 12/14/20 Status: OrderedmedroxyPROGESTERone 150 mg/mL intramuscular suspension 1 mL = 150 mg, Intramuscular, On Discharge, 0 Refills, Maintenance, 12/14/20 8:05:00 EST, Injection,Partial fill upon patient request if the prescription is for a schedule II opioid drug. Start Date: 12/14/20 Status: OrderedPrenatal Multivitamins By Mouth, Daily, 0 Refills, Maintenance, 04/21/20 16:06:00 EDT Start Date: 04/21/20 Status: Ordered Problem List Condition Effective Dates Status Health Status Informant ASCUS of cervix with negative high Active risk HPV(Confirmed) Non-Danish speaking Active patient(Confirmed) (Confirmed) Active Scoliosis(Confirmed) Active Social History Social History Type Response Smoking Status Never (less than 100 in life time) entered on: 04/21/20 Sex
--- OUTSIDE RECORDS SUMMARY | 2022-09-24 17:51 | XMS_ITS | Continuity of Care Document ---
:1990 Author Organization [facility] Address [address] [place] [id number]- Care Team Providers Name Role Phone Kari Guan MD Primary Care Physician [place] [facility] [place]11[place] - 12/14/[address] [address] Discharge Disposition: A-D/C Home Attending Physician: Raul METCALF [OB], Kathy Jaramilol Admitting Physician: Raul METCALF [OB], Kathy Jaramillo Referring Physician: Raul METCALF [OB], Kathy Jaramillo Allergies, Adverse Reactions, Alerts Substance Reaction Severity [...] 12/14/20 8:06:00 EST, Route to Pharmacy Electronically, [facility]/pharmacy #[id number], Partial fill upon patient request if [...] 12/14/20 8:05:00 EST, Route to Pharmacy Electronically, [facility]/pharmacy #[id number], Partial fill upon patient request if the [...] cervix with negative high Active risk HPV(Confirmed) Non-Irish speaking Active patient(Confirmed) (Confirmed) Active Scoliosis(Confirmed) Active Vital Signs Most recent to oldest [Reference 1 2 3 Range]: Height 170 cm 170 cm 170 cm (12/14/20 9:05 AM) (12/14/20 12:00 AM) (12/13/20 5:33 PM) Weight 78.1 kg 78.1 kg (12/11/20 5:10 PM) (12/11/20 3:11 PM) Oxygen Saturation [94-100 %] 99 % 100 % 98 % (12/14/20 12:00 AM) (12/13/20 12:00 AM) (12/12/20 6:09 AM) Pulse Rate [55-90 bpm] 84 bpm 86 bpm 93 bpm (12/14/20 9:05 AM) (12/14/20 12:00 AM) *H* (12/13/20 5:33 PM) Body Mass Index [18.5-24.99] 27.02 *H* (12/11/20 5:10 PM) Blood Pressure [90-138/55-84 mm 111/64 mm Hg 126/83 mm Hg 122/68 mm Hg Hg] (12/14/20 9:05 AM) (12/14/20 12:00 AM) (12/13/20 5:33 PM) Respiratory Rate [16-30 br/min] 18 br/min 18 br/min 18 br/min (12/14/20 9:05 AM) (12/14/20 12:00 AM) (12/13/20 5:33 PM) Temperature [96.8-100.4 DegF] 98.1 DegF 97.8 DegF 98 .1 DegF (12/14/20 9:05 AM) (12/14/20 12:00 AM) (12/13/20 5:33 PM) Mode of Delivery (Oxygen) Room air Room air Room a ir (12/14/20 12:00 AM) (12/13/20 12:00 AM) (12/12/20 6:09 AM) Blood pressure sites Arm, right Arm, right Arm, right (12/13/20 5:33 PM) (12/13/20 8:10 AM) (12/12/20 3:33 P M) Temperature Route Oral Oral Oral (12/14/20 9:05 AM) (12/14/20 12:00 AM) (12/13/20 5:33 PM) Dry Weight 78.1 kg 78.1 kg (12/11/20 5:10 PM) (12/11/20 3:11 PM) Social History Social History Type Response Smoking Status Never (less than 100 in life time) entered on: 04/21/20 Sex Female
--- OUTSIDE RECORDS SUMMARY | 2022-09-24 17:51 | XMS_ITS | Continuity of Care Document ---
:1990 Author Organization [facility] Address [address] [place] [phone]- Care Team Providers Name Role Phone Po Kari METCALF Primary Care Physician Encounter [facility] [place] Date(s): 01/20/22 - 02/19/[address] [address] Attending Physician: Reta Dial Admitting Physician: Admtr, [id number] Referring Physician: Admtr, Ar8 Allergies, Adverse Reactions, Alerts No Known Allergies Immunizations Given and Recorded Vaccine Date Status Refusal Reason tetanus/diphtheria/pertussis, acel(Tdap) 10/21/20 Given influenza virus vaccine, inactivated 07/21/20 Given Medications acetaminophen 325 mg oral tablet 650 mg, 2, tablet, By Mouth, Every 4 hours, PRN, # 50 tablet, Refills 1, Tot. Refills 1, Maintenance, Pain , Mild, 12/14/20 8:06:00 EST, Route to Pharmacy Electronically, [facility]/pharmacy #[id number], Partial fill upon patient request if the prescription is for... Start Date: 12/14/20 Status: Orderedacetaminophen 325 mg oral tablet 650 mg, By Mouth, Every 6 hours, PRN, not to exceed 4000 mg/day, # 50 tablet, Refills 0, Tot. Refills 0, Maintenance, Pain , Mild, 02/04/21 13:42:00 EDT, Route to Pharmacy Electronically, [facility]/pharmacy #[id number], Partial fill upon patient request if the pr... Start Date: 02/04/21 Status: Ordereddocusate sodium 100 mg oral capsule 1 capsule = 100 mg, By Mouth, 2 times a day, PRN Constipation, # 60 capsule, 0 Refills, Maintenance,12/14/20 8:04:00 EST, Capsule, [facility]/pharmacy #[id number], Partial fill upon patient request if the prescription is for a schedule II opioid drug., 170, cm, 0... Start Date: 12/14/20 Status: Orderedibuprofen 600 mg oral tablet 600 mg, 1, tablet, By Mouth, Every 6 hours, # 40 tablet, Refills 1, Tot. Refills 1, Maintenance, 12/14/20 8:05:00 EST, Route to Pharmacy Electronically, [facility]/pharmacy #[id number], Partial fill upon patient request if the prescription is for a schedule II opi... Start Date: 12/14/20 Status: Orderedibuprofen 800 mg oral tablet 800 mg, 1, tablet, By Mouth, Every 8 hours, not to exceed 3200 mg/day, # 30 tablet, Refills 0, Tot. Refills 0, Maintenance, 02/04/21 13:41:00 EDT, Route to Pharmacy Electronically, [facility]/pharmacy #[id number], Partial fill upon patient request if [...] 0 Refills, Maintenance, 02/04/21 13:42:00 EDT, Capsule, [facility]/pharmacy #[id number], Partial fill upon patient request if the prescription is for a schedule II opioid drug., 170,... Start Date: 02/04/21 Status: OrderedPrenatal Multivitamins By Mouth, Daily, 0 Refills, Maintenance, 04/21/20 16:06:00 EDT Start Date: 04/21/20 Status: Ordered Problem List Condition Effective Dates Status Health Status Informant ASCUS of cervix with negative high Active risk HPV(Confirmed) Non-Uzbek speaking Active patient(Confirmed) (Confirmed) Active Scoliosis(Confirmed) Active Social History Social History Type Response Smoking Status Never (less than 100 in life time) entered on: 04/21/20 Sex Female
--- OUTSIDE RECORDS SUMMARY | 2022-09-24 17:51 | XMS_ITS | Continuity of Care Document ---
:1990 Author Organization [facility] Address [address] [place] [address]- Care Team Providers Name Role Phone Po Kari METCALF Primary Care Physician Encounter [facility] [place] Date(s): 02/16/21 - 03/18/[address] [address]- Attending Physician: Reta Dial Admitting Physician: Reta Dial Referring Physician: AdmtrReta Allergies, Adverse Reactions, Alerts Substance Reaction Severity [...] 12/14/20 8:06:00 EST, Route to Pharmacy Electronically, [facility]/pharmacy #[id number], Partial fill upon patient request if the prescription is for... Start Date: 12/14/20 Status: Orderedacetaminophen 325 mg oral tablet 650 mg, By Mouth, Every 6 hours, PRN, not to exceed 4000 mg/day, # 50 tablet, Refills 0, Tot. Refills 0, Maintenance, Pain , Mild, 02/04/21 13:42:00 EDT, Route to Pharmacy Electronically, [facility]/pharmacy #[id number], Partial fill upon patient request if the pr... Start Date: 02/04/21 Status: Ordereddocusate sodium 100 mg oral capsule 1 capsule = 100 mg, By Mouth, 2 times a day, PRN Constipation, # 60 capsule, 0 Refills, Maintenance,12/14/20 8:04:00 EST, Capsule, [facility]/pharmacy #[id number], Partial fill upon patient request if the prescription is for a schedule II opioid drug., 170, cm, 0... Start Date: 12/14/20 Status: Orderedibuprofen 600 mg oral tablet 600 mg, 1, tablet, By Mouth, Every 6 hours, # 40 tablet, Refills 1, Tot. Refills 1, Maintenance, 12/14/20 8:05:00 EST, Route to Pharmacy Electronically, [facility]/pharmacy #[id number], Partial fill upon patient request if the prescription is for a schedule II opi... Start Date: 12/14/20 Status: Orderedibuprofen 800 mg oral tablet 800 mg, 1, tablet, By Mouth, Every 8 hours, not to exceed 3200 mg/day, # 30 tablet, Refills 0, Tot. Refills 0, Maintenance, 02/04/21 13:41:00 EDT, Route to Pharmacy Electronically, [facility]/pharmacy #[id number], Partial fill upon patient [...] 0 Refills, Maintenance, 02/04/21 13:42:00 EDT, Capsule, [facility]/pharmacy #[id number], Partial fill upon patient request if the prescription is for a schedule II opioid drug., 170,... Start Date: 02/04/21 Status: OrderedPrenatal Multivitamins By Mouth, Daily, 0 Refills, Maintenance, 04/21/20 16:06:00 EDT Start Date: 04/21/20 Status: Ordered Problem List Condition Effective Dates Status Health Status Informant ASCUS of cervix with negative high Active risk HPV(Confirmed) Non-Portuguese speaking Active patient(Confirmed) (Confirmed) Active Scoliosis(Confirmed) Active Social History Social History Type Response Smoking Status Never (less than 100 in life time) entered on: 04/21/20 Sex Female
--- OUTSIDE RECORDS SUMMARY | 2022-09-24 17:51 | XMS_ITS | Continuity of Care Document ---
:1990 Author Organization [facility] ic Address [address] [place] [id number]- Care Team Providers Name Role Phone Po Kari METCALF Primary Care Physician Encounter [facility] [place] Date(s): 11/19/20 - 12/26/[address] [address]- Attending Physician: Not on Staff, Attending MD Allergies, Adverse Reactions, Alerts Substance Reaction [...] 12/14/20 8:06:00 EST, Route to Pharmacy Electronically, [facility]/pharmacy #[id number], Partial fill upon patient request [...] 12/14/20 8:05:00 EST, Route to Pharmacy Electronically, [facility]/pharmacy #[id number], Partial fill upon patient request if the [...] cervix with negative high Active risk HPV(Confirmed) Non-Lithuanian speaking Active patient(Confirmed) (Confirmed) Active Scoliosis(Confirmed) Active Social History Social History Type Response Smoking Status Never (less than 100 in life time) entered on: 04/21/20 Sex
--- OUTSIDE RECORDS SUMMARY | 2022-09-24 17:51 | XMS_ITS | Continuity of Care Document ---
:1990 Author Organization [facility] Address [address] [place] [phone]- Care Team Providers Name Role Phone Shawnee Love Primary Care Physician Encounter [facility] Date(s): 04/15/20 - 05/15/[address] [address]- [facility] Allergies, Adverse Reactions, Alerts Substance Reaction Severity Status NKA Active Medications Ibuprofen Refills 0, Maintenance, 11/12/17 14:59:15 Start Date: 11/12/17 Status: OrderedPrenatal Multivitamins By Mouth, Daily, 0 Refills, Maintenance, 04/21/20 16:06:00 EDT Start Date: 04/21/20 Status: Ordered Problem List Condition Effective Dates Status Health Status Informant Scoliosis(Confirmed) Active Social History Social History Type Response Smoking Status Never (less than 100 in life time) entered on: 04/21/20 Sex Female
[2022-09-24 18:00] LABS: Prothrombin Time 11.5 SEC (10.0-13.1)
[2022-09-24 18:06] LABS: Bacteria Urine None Seen (None Seen); RBC Urine 0-2 /HPF (0-2); UACC Culture Trigger YES; WBC Urine 0-5 /HPF (0-5)
[2022-09-24 18:27] LABS: Alanine Aminotransferase 10 U/L (0-31); Albumin Level 3.9 g/dL (3.5-5.0); Alkaline Phosphatase 61 U/L (39-117); Anion Gap 10 (12-20); Aspartate Amino Transferase 14 U/L (5-31); Bilirubin Total 0.2 mg/dL (0.0-1.0); Blood Urea Nitrogen 12 mg/dL (9-16); Calcium 8.3 mg/dL (8.4-10.2); Carbon Dioxide 24 mmol/L (22-29); Chloride 108 mmol/L (96-108); Creatinine Clr Calc Pharmacy 95.8; Estimated Glomerular Filt Rate > 60; Glucose Random 71 mg/dL (60-115); HCG Quantitative < 2 mIU/mL; Influenza A PCR NEGATIVE (Negative); Influenza B PCR NEGATIVE (Negative); Lipase 12 U/L (8-78); Magnesium 2.1 mg/dL (1.6-2.6); Potassium 3.7 mmol/L (3.3-5.1); Resp Syncy Virus RNA Qual PCR NEGATIVE (Negative); SARS COV2 PCR INHOUSE POSITIVE (Negative); Sodium 138 mmol/L (135-145); Total Protein 6.6 g/dL (6.5-8.0)
[2022-09-24 20:09] VITALS: BP 120/83; PULSE 84; RESP 17; TEMP 37.4; O2SAT 98
--- NOTE | 2022-09-24 20:10 | PC.NURSE ---
Care assumed now in main ED. Patient is alert, oriented x4. She endorses 9/10 RLQ pain that began yesterday. +nausea. Denies vomiting or diarrhea. COVID + here- appropriate precautions maintained. PIV established for CT.
[2022-09-24] MEDS: iohexoL 350 MG/ML 100 ML INFUS..BTL IV (20:32)
--- NOTE | 2022-09-24 22:11 | PC.NURSE ---
Surgery consult bedside with honey extractor to assess patient.
--- NOTE | 2022-09-24 22:15 | PM.HPGS ---
History of Present Illness History of Present Illness Date of Service: 09/29/22 Chief complaint: Right Lower Quadrant Pain Narrative: Khadijah Carlos is a 31 year old female who says she has had right lower quadrant pain since after dinner last night. She says this has been constant and persistent. She says she had a littlle bit of nausea yesterday. She denies any diarrhea or dysuria. She says her pain had persisted to she she came to the ED because of the persistence of pain. Review of Systems Constitutional: Constitutional: Denies chills and Denies fever(s) Cardiovascular: Cardiovascular: Denies chest pain, Denies dyspnea and Denies dyspnea on exertion Respiratory: Respiratory: Denies cough, Denies dyspnea and Denies dyspnea on exertion Gastrointestinal: Gastrointestinal: Denies hematochezia and Denies change in bowel habits Genitourinary: Genitourinary: Denies hematuria Musculoskeletal: Musculoskeletal: Denies back pain and Denies limited range of motion Neurologic: Denies focal weakness and Denies convulsions Psychiatric: Psychiatric: Denies depression and Denies mood swings [facility] Past Medical History Medical History (Updated 09/24/22 @ 23:01 by Daniel Reyes MD) Right lower quadrant pain Surgical History Surgical History (Updated 02/03/22 @ 14:53 by CHELSIE Nielson) History of tubal ligation Social History Social History (Updated 02/03/22 @ 14:46 by CHELSIE Nielson) Household Members: Spouse Housing: Apartment Do you presently have visiting nurse or other home services: No Alcohol intake: never Patient Tobacco Use Status: Never used Tobacco e-Cigarette/Vaping Use: Never Used Second Hand Smoke Exposure: No service: No Current occupational status: unemployed Cognitive needs: No Hearing needs: No Vision needs: No Meds Allergies Allergy/AdvReac Type Severity Reaction Status Date / Time No Known Allergies Allergy Verified 02/03/22 15:14 Home Medications Medication Instructions Recorded Confirmed Last Taken Type No Known Home Meds 09/25/22 09/25/22 Unknown History Physical Exam Vital Signs: Vital Signs: Last Vital Signs Temp 99.3 F 09/24/22 20:09 Pulse 84 09/24/22 20:09 Resp 17 09/24/22 20:09 BP 120/83 09/24/22 20:09 Pulse Ox 98 09/24/22 20:09 O2 Del Method 09/24/22 20:09 BMI result Body Mass Index 20.2 Const: General: comfortable and no acute distress Orientation/consciousness: patient oriented x3 Neck: Neck: Yes no lymphadenopathy Resp: Auscultation: clear to auscultation bilaterally Cardio: Rhythm: regular rhythm GI: Other: tender on right lower quadrant, no rebound no peritoneal signs Palpation (GI): Soft to palpation, nontender and no guarding Neuro: General: patient oriented x3 Results Results Labs: Short CBC 09/24/22 Range/Units 17:43 WBC 4.4 L (4.8-10.8) X10*3/uL Hgb 12.5 (12.0-16.0) g/dl Hct 37.5 (37.0-47.0) % Plt Count 184 (160-400) X10*3/uL BMP 09/24/22 17:43 Sodium 138 Potassium 3.7 Chloride 108 Carbon Dioxide 24 BUN 12 Creatinine 0.80 Calcium 8.3 L D Liver Function 09/24/22 Range/Units 17:43 Total Bilirubin 0.2 (0.0-1.0) mg/dL AST 14 (5-31) U/L ALT 10 (0-31) U/L Alkaline Phosphatase 61 (39-117) U/L Albumin 3.9 (3.5-5.0) g/dL Urine 09/24/22 Range/Units 17:43 Urine Color Yellow Urine Appearance Cloudy Urine pH 5.5 (5.0-9.0) Ur Specific [place] 1.015 (1.005-1.025) Urine Protein Trace (Neg-Trace) mg/dL Urine Glucose (UA) Negative (Negative) mg/dL Additional studies: Laboratory Results WBC 4.4 X10*3/uL (4.8-10.8) L 09/24/22 17:43 RBC 4.24 X10*6/uL (4.20-5.50) 09/24/22 17:43 Hgb 12.5 g/dl (12.0-16.0) 09/24/22 17:43 Hct 37.5 % (37.0-47.0) 09/24/22 17:43 MCV 88.4 fL (80.0-98.0) 09/24/22 17:43 MCH 29.5 pg (27.0-33.0) 09/24/22 17:43 MCHC 33.3 g/dl (31.0-35.0) 09/24/22 17:43 RDW 12.0 % (11.0-16.0) 09/24/22 17:43 Plt Count 184 X10*3/uL (160-400) 09/24/22 17:43 MPV 10.1 fL (9.4-12.3) 09/24/22 17:43 Immature Gran % (Auto) 0.2 % (0.0-0.4) 09/24/22 17:43 Neut % (Auto) 51.7 % (45-73) 09/24/22 17:43 Lymph % (Auto) 36.1 % (20-40) 09/24/22 17:43 [place] % (Auto) 5.2 % (2-11) 09/24/22 17:43 Eos % (Auto) 5.9 % (0-4) H 09/24/22 17:43 Baso % (Auto) 0.9 % (0-2) 09/24/22 17:43 Lymph # (Auto) 1.6 X10*3/uL (1.2-4.9) 09/24/22 17:43 [place] # (Auto) 0.2 X10*3/uL (0.1-1.2) 09/24/22 17:43 Eos # (Auto) 0.3 X10*3/uL (0.0-0.4) 09/24/22 17:43 Baso # (Auto) 0.0 X10*3/uL (0.0-0.2) 09/24/22 17:43 Abs Immat Gran (auto) 0.01 X10*3/uL (0.00-0.03) 09/24/22 17:43 Absolute Neuts (auto) 2.3 x10*3/uL (2.0-8.3) 09/24/22 17:43 Absolute Nucleated RBC 0.000 X10*3/uL (0.0-0.012) 09/24/22 17:43 Nucleated RBC % (auto) 0.0 /100WBC (0.0-0.2) 09/24/22 17:43 PT 11.5 SEC (10.0-13.1) 09/24/22 17:43 INR 1.0 (0.9-1.1) 09/24/22 17:43 Sodium 138 mmol/L (135-145) 09/24/22 17:43 Potassium 3.7 mmol/L (3.3-5.1) 09/24/22 17:43 Chloride 108 mmol/L (96-108) 09/24/22 17:43 Carbon Dioxide 24 mmol/L (22-29) 09/24/22 17:43 Anion Gap 10 (12-20) L 09/24/22 17:43 BUN 12 mg/dL (9-16) 09/24/22 17:43 Creatinine 0.80 mg/dL (0.5-1.4) 09/24/22 17:43 Estim Creat Clear Calc 95.8 09/24/22 17:43 Estimated GFR > 60 09/24/22 17:43 Random Glucose 71 mg/dL (60-115) 09/24/22 17:43 Calcium 8.3 mg/dL (8.4-10.2) L D 09/24/22 17:43 Magnesium 2.1 mg/dL (1.6-2.6) 09/24/22 17:43 Total Bilirubin 0.2 mg/dL (0.0-1.0) 09/24/22 17:43 AST 14 U/L (5-31) 09/24/22 17:43 ALT 10 U/L (0-31) 09/24/22 17:43 Alkaline Phosphatase 61 U/L (39-117) 09/24/22 17:43 Total Protein 6.6 g/dL (6.5-8.0) 09/24/22 17:43 Albumin 3.9 g/dL (3.5-5.0) 09/24/22 17:43 Lipase 12 U/L (8-78) 09/24/22 17:43 Beta HCG, Quant < 2 mIU/mL 09/24/22 17:43 Urine Color Yellow 09/24/22 17:43 Urine Appearance Cloudy 09/24/22 17:43 Urine pH 5.5 (5.0-9.0) 09/24/22 17:43 Ur Specific [place] 1.015 (1.005-1.025) 09/24/22 17:43 Urine Protein Trace mg/dL (Neg-Trace) 09/24/22 17:43 Urine Glucose (UA) Negative mg/dL (Negative) 09/24/22 17:43 Urine Ketones Negative mg/dL (Negative) 09/24/22 17:43 Urine Blood Negative (Negative) 09/24/22 17:43 Urine Nitrite Negative (Negative) 09/24/22 17:43 Ur Leukocyte Esterase Small (1+) (Negative) H 09/24/22 17:43 Urine RBC 0-2 /HPF (0-2) 09/24/22 17:43 Urine WBC 0-5 /HPF (0-5) 09/24/22 17:43 Ur Squamous Epith Cells 3-5 /HPF (0-2) 09/24/22 17:43 Urine Bacteria None Seen (None Seen) 09/24/22 17:43 Hyaline Casts 3-5 /LPF (0-2) 09/24/22 17:43 Influenza Type A (PCR) NEGATIVE (Negative) 09/24/22 17:43 Influenza Type B (PCR) NEGATIVE (Negative) 09/24/22 17:43 RSV RNA Qual (PCR) NEGATIVE (Negative) 09/24/22 17:43 SARS-CoV-2 RNA (RT-PCR) POSITIVE (Negative) A 09/24/22 17:43 Impressions Doppler Study Ultrasound 09/24/22 18:06 IMPRESSION: 1. Normal uterus and ovaries. No adnexal cyst or mass. No evidence of ovarian torsion. 2. No free pelvic fluid. Pelvis Ultrasound 09/24/22 18:06 IMPRESSION: 1. Normal uterus and ovaries. No adnexal cyst or mass. No evidence of ovarian torsion. 2. No free pelvic fluid. Appendix Ultrasound 09/24/22 18:16 IMPRESSION: Findings suspicious for acute appendicitis. No findings of perforation or abscess. Abdomen/Pelvis CT 09/24/22 20:32 IMPRESSION: 1. The appendix is mildly enlarged at 7 to 8 mm in size without air in the lumen. There is no appendicolith or periappendiceal inflammatory changes seen. Findings may represent early appendicitis. 2. Dilated proximal left ovarian vein with reflux. 3. Probable ruptured right ovarian cyst. 4. Incidental note made of benign hepatic cyst, scoliosis and degenerative changes in the spine. Fleischner guidelines were followed. Assessment and Plan (1) Right lower quadrant pain: Status: Acute She describes RLQ pain since last night. I have reviewed her CT scan and this does not show any inflammatory changes around the appendix. She does not have leukocytosis. In view of her tenderness, I will admit her for observation. I will not start her on antibiotics but she will be kept NPO. I explained to her that depending on her serial exam and overall clinical picture, we may need to proceed with laparoscopic appendectomy. She is comfortable with the plan. (2) COVID: Status: Acute Time Spent With Patient Time: Total time managing care of this patient today ____ minutes. Quality Stroke Does the patient have a stroke diagnosis?: No VTE Prior VTE?: No VTE Risk Level:: Medical - low VTE Device Contraindication: N/A - Device Ordered VTE Drug Contraindication: Treatment Not Indicated Procedures Date of Service Date of Service: 09/24/22
[2022-09-24] MEDS: Lactated Ringers 1,000 ML 100 ML IVCONT (22:41)
[2022-09-24 22:42] VITALS: BP 116/74; PULSE 72; RESP 15; TEMP 36.8; O2SAT 98
[2022-09-25 00:32] VITALS: BP 110/63; PULSE 71; RESP 14; TEMP 36.8; O2SAT 99
--- NOTE | 2022-09-25 01:48 | PC.NURSE ---
Pt's V/S are stable, pt is asleep and LR is running as order.
[2022-09-25 05:59] LABS: Hemoglobin 11.8 g/dl (12.0-16.0); Mean Corpuscular HGB Conc 33.7 g/dl (31.0-35.0); Mean Corpuscular Hemoglobin 29.9 pg (27.0-33.0); Mean Corpuscular Volume 88.8 fL (80.0-98.0); Mean Platelet Volume 10.4 fL (9.4-12.3); Platelet Count 161 X10*3/uL (160-400); Red Blood Count 3.94 X10*6/uL (4.20-5.50); White Blood Count 3.1 X10*3/uL (4.8-10.8)
[2022-09-25 06:04] VITALS: BP 109/69; PULSE 78; RESP 16; TEMP 36.9; O2SAT 99
--- NOTE | 2022-09-25 07:36 | PHA.MEDREC ---
Pharmacy Consult ? Medication Reconciliation Pharmacy has completed the medication reconciliation. Spoke with patient via phone, patient is not on any medications.
[2022-09-25] MEDS: Morphine Sulfate 2 MG/ML CARTRIDGE IVPUSH (08:49)
[2022-09-25] MEDS: Lactated Ringers 1,000 ML 100 ML IVCONT ×2 (08:52→19:35)
--- NOTE | 2022-09-25 09:11 | PM.PNGS ---
Subjective Subjective Date of Service: 09/26/22 Interval history: still has pain on the lower abdomen although better no nausea or vomiting no respiratory complaints Physical Exam Vital Signs: Vital Signs: Last Vital Signs Temp 98.4 F 09/25/22 06:04 Pulse 78 09/25/22 06:04 Resp 16 09/25/22 06:04 BP 109/69 09/25/22 06:04 Pulse Ox 99 09/25/22 06:04 O2 Del Method 09/25/22 06:04 BMI result Body Mass Index 20.2 Const: General: comfortable and no acute distress Resp: Effort & Inspection: normal respiratory effort Cardio: Rate: regular rate GI: Other: some tenderness on the right lower quadrant and suprapubic areas Palpation (GI): Soft to palpation, not firm, no guarding and not rigid Objective Data Active Medications Lactated Ringer's (Lr) 1,000 mls @ 100 mls/hr IVCONT .Q10H [facility] Last Admin: 09/25/22 08:52 Dose: 100 mls/hr Documented By: KESHA Morphine Sulfate (Morphine Sulfate 2 Mg/Ml Cartridge) 2 mg IVPUSH Q3H PRN; Protocol PRN Reason: Pain, Severe (Pain Scale 7-10) Last Admin: 09/25/22 08:49 Dose: 2 mg Documented By: KESHA Ondansetron HCl (Ondansetron Hcl 4 Mg/2 Ml Vial) 4 mg IVPUSH Q8H PRN PRN Reason: Nausea Oxycodone HCl (Oxycodone Hcl Immed Release 5 Mg Tablet) 5 mg PO Q6H PRN PRN Reason: Pain, Moderate (Pain Scale 4-6 Sodium Chloride (0.9 % Sodium Chloride Flush 3 Ml Syringe) 3 ml IVFLUSH QSHIFT [facility] Last Admin: 09/25/22 08:31 Dose: Not Given Documented By: KESHA Non-Admin Reason: IV Running Labs CBC & Chem 7: 09/26/22 07:24 09/26/22 07:24 Labs: Laboratory Results - last 24 hr 09/24/22 09/24/22 09/24/22 17:43 17:43 17:43 MCV 88.4 MCH 29.5 MCHC 33.3 RDW 12.0 Plt Count 184 MPV 10.1 Immature Gran % (Auto) 0.2 Neut % (Auto) 51.7 Lymph % (Auto) 36.1 [place] % (Auto) 5.2 Eos % (Auto) 5.9 H Baso % (Auto) 0.9 Lymph # (Auto) 1.6 [place] # (Auto) 0.2 Eos # (Auto) 0.3 Baso # (Auto) 0.0 Abs Immat Gran (auto) 0.01 Absolute Neuts (auto) 2.3 Absolute Nucleated RBC 0.000 Nucleated RBC % (auto) 0.0 PT 11.5 INR 1.0 Anion Gap 10 L Estim Creat Clear Calc 95.8 Estimated GFR > 60 Random Glucose 71 Calcium 8.3 L D Magnesium 2.1 Total Bilirubin 0.2 AST 14 ALT 10 Alkaline Phosphatase 61 Total Protein 6.6 Albumin 3.9 Lipase 12 Beta HCG, Quant < 2 Urine Color Urine Appearance Urine pH Ur Specific [place] Urine Protein Urine Glucose (UA) Urine Ketones Urine Blood Urine Nitrite Ur Leukocyte Esterase Urine RBC Urine WBC Ur Squamous Epith Cells Urine Bacteria Hyaline Casts Influenza Type A (PCR) Influenza Type B (PCR) RSV RNA Qual (PCR) SARS-CoV-2 RNA (RT-PCR) 09/24/22 09/24/22 09/25/22 17:43 17:43 05:50 MCV 88.8 MCH 29.9 MCHC 33.7 RDW 12.0 Plt Count 161 MPV 10.4 Immature Gran % (Auto) Neut % (Auto) Lymph % (Auto) [place] % (Auto) Eos % (Auto) Baso % (Auto) Lymph # (Auto) [place] # (Auto) Eos # (Auto) Baso # (Auto) Abs Immat Gran (auto) Absolute Neuts (auto) Absolute Nucleated RBC 0.000 Nucleated RBC % (auto) 0.0 PT INR Anion Gap Estim Creat Clear Calc Estimated GFR Random Glucose Calcium Magnesium Total Bilirubin AST ALT Alkaline Phosphatase Total Protein Albumin Lipase Beta HCG, Quant Urine Color Yellow Urine Appearance Cloudy Urine pH 5.5 Ur Specific [place] 1.015 Urine Protein Trace Urine Glucose (UA) Negative Urine Ketones Negative Urine Blood Negative Urine Nitrite Negative Ur Leukocyte Esterase Small (1+) H Urine RBC 0-2 Urine WBC 0-5 Ur Squamous Epith Cells 3-5 Urine Bacteria None Seen Hyaline Casts 3-5 Influenza Type A (PCR) NEGATIVE Influenza Type B (PCR) NEGATIVE RSV RNA Qual (PCR) NEGATIVE SARS-CoV-2 RNA (RT-PCR) POSITIVE A Procedures Date of Service Date of Service: 09/25/22 Progress Note: A&P Assessment and plan (1) Abdominal pain, right lower quadrant: Status: Acute Assessment and Plan: CT reviewed with radiologist - no signs of significant inflammatory changes in the right lower quadrant pain better still present WBC still low no fever looks well Will hold off on appendectomy try clear liquids continue serial abdominal exam exam remains very benign explained plan to patient and Time Spent With Patient Time: Total time managing care of this patient today ____ minutes. Quality Stroke Does the patient have a stroke diagnosis?: No VTE Prior VTE?: No VTE Risk Level:: Medical - low VTE Device Contraindication: Treatment Not Indicated VTE Drug Contraindication: Treatment Not Indicated
[2022-09-25] MEDS: 0.9 % Sodium Chloride Flush 3 ML SYRINGE IVFLUSH (17:29)
[2022-09-25] MEDS: ondansetron HCL 4 MG/2 ML VIAL IVPUSH (17:29)
[2022-09-25] MEDS: Acetaminophen 325 MG TABLET 650 MG PO (17:29)
--- NOTE | 2022-09-25 17:36 | MHC.CM.PN ---
DERRICK 09/25. A&Ox4. Independent. Lives with . No DME/services. Pfizer x2. Declines HCP. + Covid. D/C plan: Home without services. Pt to arrange transport. CM to follow for d/c needs.
[2022-09-25 17:48] VITALS: BP 115/67; PULSE 67; RESP 18; TEMP 36.9; O2SAT 100
[2022-09-25 21:43] VITALS: BP 114/73; PULSE 97; RESP 19; TEMP 36.7; O2SAT 100
[2022-09-25 23:29] VITALS: BP 107/72; PULSE 74; RESP 18; TEMP 37.2; O2SAT 100
[2022-09-26 03:31] VITALS: BP 109/62; PULSE 76; RESP 20; TEMP 37.1; O2SAT 100
[2022-09-26] MEDS: Lactated Ringers 1,000 ML 100 ML IVCONT ×2 (05:47→16:37)
[2022-09-26 07:40] VITALS: BP 155/100; PULSE 84; RESP 16; TEMP 36.3; O2SAT 99
[2022-09-26 07:51] LABS: Hemoglobin 11.7 g/dl (12.0-16.0); Mean Corpuscular HGB Conc 33.4 g/dl (31.0-35.0); Mean Corpuscular Hemoglobin 29.5 pg (27.0-33.0); Mean Corpuscular Volume 88.2 fL (80.0-98.0); Mean Platelet Volume 10.3 fL (9.4-12.3); Platelet Count 165 X10*3/uL (160-400); Red Blood Count 3.97 X10*6/uL (4.20-5.50); Red Cell Distribution Width 11.8 % (11.0-16.0); White Blood Count 3.3 X10*3/uL (4.8-10.8)
[2022-09-26 08:03] LABS: Anion Gap 9 (12-20); Blood Urea Nitrogen 6 mg/dL (9-16); Calcium 8.2 mg/dL (8.4-10.2); Carbon Dioxide 24 mmol/L (22-29); Chloride 109 mmol/L (96-108); Creatinine Clr Calc Pharmacy 116.1; Estimated Glomerular Filt Rate > 60; Glucose Random 84 mg/dL (60-115); Sodium 138 mmol/L (135-145)
[2022-09-26] MEDS: Acetaminophen 325 MG TABLET 650 MG PO ×2 (12:32→20:36)
--- NOTE | 2022-09-26 13:07 | P.PNGS_ITS ---
Subjective Subjective Date of Service: 09/27/22 Interval history: pain on abd much better c/o cough no fever Physical Exam Vital Signs: Vital Signs: Last Vital Signs Temp 97.4 F 09/26/22 07:40 Pulse 84 09/26/22 07:40 Resp 16 09/26/22 07:40 BP 155/100 H 09/26/22 07:40 Pulse Ox 99 09/26/22 07:40 O2 Del Method 09/26/22 07:40 BMI result Body Mass Index 20.2 Const: General: comfortable and no acute distress Resp: Effort & Inspection: normal respiratory effort Cardio: Rate: regular rate GI: Other: tender on lower abd, much better Palpation (GI): Soft to palpation, not firm, no guarding and not rigid Objective Data Active Medications Acetaminophen (Acetaminophen 325 Mg Tablet) 650 mg PO Q6H PRN PRN Reason: fever, pain Last Admin: 09/26/22 12:32 Dose: 650 mg Documented By: MITRA Guaifenesin (Guaifenesin 100 Mg/5 Ml Liquid) 5 ml PO Q6H PRN PRN Reason: Cough Lactated Ringer's (Lr) 1,000 mls @ 100 mls/hr IVCONT .Q10H [facility] Last Admin: 09/26/22 05:47 Dose: 100 mls/hr Documented By: STACEY Morphine Sulfate (Morphine Sulfate 2 Mg/Ml Cartridge) 2 mg IVPUSH Q3H PRN; Protocol PRN Reason: Pain, Severe (Pain Scale 7-10) Last Admin: 09/25/22 08:49 Dose: 2 mg Documented By: KESHA Ondansetron HCl (Ondansetron Hcl 4 Mg/2 Ml Vial) 4 mg IVPUSH Q8H PRN PRN Reason: Nausea Last Admin: 09/25/22 17:29 Dose: 4 mg Documented By: ISABEL Oxycodone HCl (Oxycodone Hcl Immed Release 5 Mg Tablet) 5 mg PO Q6H PRN PRN Reason: Pain, Moderate (Pain Scale 4-6 Sodium Chloride (0.9 % Sodium Chloride Flush 3 Ml Syringe) 3 ml IVFLUSH QSHIFT [facility] Last Admin: 09/26/22 09:39 Dose: Not Given Documented By: MITRA Non-Admin Reason: IV Running Labs CBC & Chem 7: 12/20/22 07:24 09/26/22 07:24 Labs: Laboratory Results - last 24 hr 09/26/22 09/26/22 07:24 07:24 MCV 88.2 MCH 29.5 MCHC 33.4 RDW 11.8 Plt Count 165 MPV 10.3 Absolute Nucleated RBC 0.000 Nucleated RBC % (auto) 0.0 Anion Gap 9 L Estim Creat Clear Calc 116.1 Estimated GFR > 60 Random Glucose 84 Calcium 8.2 L Microbiology Microbiology Results: Microbiology 09/24/22 18:06 Urine Culture - Final Urine clean catch - Clean Catch Midstream Procedures Date of Service Date of Service: 09/26/22 Progress Note: A&P Assessment and plan (1) Abdominal pain, right lower quadrant: Status: Acute Assessment and Plan: clinically not acute appendicitis much improved c/o cough - tested positive for COVID no leukocytosis advance diet continue serial exam benign abdomen Time Spent With Patient Time: Total time managing care of this patient today ____ minutes. Quality Stroke Does the patient have a stroke diagnosis?: No VTE Prior VTE?: No VTE Risk Level:: Medical - low VTE Device Contraindication: Treatment Not Indicated VTE Drug Contraindication: Treatment Not Indicated
[2022-09-26] MEDS: guaiFENesin 100 MG/5 ML LIQUID PO ×2 (13:59→20:36)
[2022-09-26 15:37] VITALS: BP 112/77; PULSE 78; RESP 18; TEMP 37; O2SAT 98
--- NOTE | 2022-09-26 15:41 | PM.EVENT ---
Event Note Date of Service: 09/27/22 Event Note: says she feels better minimal abdominal pain no N/V no fever' abd soft and benign diet as tolerated hopefully, dc home tomorrow Time Spent With Patient Time: Total time managing care of this patient today ____ minutes.
[2022-09-26 18:10] LABS: Appearance Urine Clear; Color Urine Yellow; Glucose Urine UA Negative (Negative); Leukocyte Esterase Urine Small (1+) (Negative); Nitrite Urine Negative (Negative); UMIC TRIGGER UA YES; Urine Blood Negative (Negative); Urine Ketones Trace mg/dL (Negative); Urine Protein Negative (Neg-Trace)
[2022-09-26 18:23] LABS: Bacteria Urine None Seen (None Seen); Hyaline Casts Urine 0-2 /LPF (0-2); RBC Urine 0-2 /HPF (0-2); Squamous Epithelial Cell Urine 0-2 /HPF (0-2); WBC Urine 0-5 /HPF (0-5)
[2022-09-26 19:34] VITALS: BP 127/55; PULSE 89; RESP 17; TEMP 37; O2SAT 97
[2022-09-26] MEDS: 0.9 % Sodium Chloride Flush 3 ML SYRINGE IVFLUSH (20:40)
[2022-09-27] MEDS: guaiFENesin 100 MG/5 ML LIQUID PO (02:08)
[2022-09-27 03:45] VITALS: BP 146/73; PULSE 72; RESP 20; TEMP 37; O2SAT 99
[2022-09-27] MEDS: Acetaminophen 325 MG TABLET 650 MG PO (05:25)
[2022-09-27 05:30] VITALS: TEMP 38.7
[2022-09-27 06:28] VITALS: TEMP 37.3
[2022-09-27 07:13] VITALS: BP 108/64; PULSE 83; RESP 20; TEMP 36.9; O2SAT 97
--- NOTE | 2022-09-27 09:38 | PM.PNGS ---
Subjective Subjective Date of Service: 09/27/22 Interval history: Denies abdominal pain Tolerating diet However says she feels that her COVID symptoms have started with fever and body aches Physical Exam Vital Signs: Vital Signs: Last Vital Signs Temp 98.4 F 09/27/22 07:13 Pulse 83 09/27/22 07:13 Resp 20 09/27/22 07:13 BP 108/64 09/27/22 07:13 Pulse Ox 97 09/27/22 07:13 O2 Del Method 09/27/22 07:13 BMI result Body Mass Index 20.2 Const: General: comfortable and no acute distress Resp: Effort & Inspection: normal respiratory effort Cardio: Rate: regular rate GI: Palpation (GI): Soft to palpation, not firm, nontender, no guarding and not rigid Objective Data Active Medications Acetaminophen (Acetaminophen 325 Mg Tablet) 650 mg PO Q6H PRN PRN Reason: fever, pain Last Admin: 09/27/22 05:25 Dose: 650 mg Documented By: CIPRIANO Guaifenesin (Guaifenesin 100 Mg/5 Ml Liquid) 5 ml PO Q6H PRN PRN Reason: Cough Last Admin: 09/27/22 02:08 Dose: 5 ml Documented By: CIPRIANO Morphine Sulfate (Morphine Sulfate 2 Mg/Ml Cartridge) 2 mg IVPUSH Q3H PRN; Protocol PRN Reason: Pain, Severe (Pain Scale 7-10) Last Admin: 09/25/22 08:49 Dose: 2 mg Documented By: KESHA Ondansetron HCl (Ondansetron Hcl 4 Mg/2 Ml Vial) 4 mg IVPUSH Q8H PRN PRN Reason: Nausea Last Admin: 09/25/22 17:29 Dose: 4 mg Documented By: ISABEL Oxycodone HCl (Oxycodone Hcl Immed Release 5 Mg Tablet) 5 mg PO Q6H PRN PRN Reason: Pain, Moderate (Pain Scale 4-6 Sodium Chloride (0.9 % Sodium Chloride Flush 3 Ml Syringe) 3 ml IVFLUSH QSHIFT [facility] Last Admin: 09/26/22 20:40 Dose: 3 ml Documented By: CIPRIANO Labs CBC & Chem 7: 09/26/22 07:24 09/26/22 07:24 Labs: Laboratory Results - last 24 hr 09/26/22 17:45 Urine Color Yellow Urine Appearance Clear Urine pH 7.0 Ur Specific [place] 1.010 Urine Protein Negative Urine Glucose (UA) Negative Urine Ketones Trace Urine Blood Negative Urine Nitrite Negative Ur Leukocyte Esterase Small (1+) H Urine RBC 0-2 Urine WBC 0-5 Ur Squamous Epith Cells 0-2 Urine Bacteria None Seen Hyaline Casts 0-2 Microbiology Microbiology Results: Microbiology 09/24/22 18:06 Urine Culture - Final Urine clean catch - Clean Catch Midstream Procedures Date of Service Date of Service: 09/27/22 Progress Note: A&P Assessment and plan (1) Abdominal pain, right lower quadrant: Status: Acute Assessment and Plan: Resolved No leukocytosis No significant tenderness now She describes body aches which she says is from COVID Had a temperature of 11.7 last night She is uncertain if she can go home today Exam benign otherwise Will monitor fever pattern today Repeat UA negative Time Spent With Patient Time: Total time managing care of this patient today ____ minutes. Quality Stroke Does the patient have a stroke diagnosis?: No VTE Prior VTE?: No VTE Risk Level:: Medical - low VTE Device Contraindication: Treatment Not Indicated VTE Drug Contraindication: Treatment Not Indicated
[2022-09-27] MEDS: 0.9 % Sodium Chloride Flush 3 ML SYRINGE IVFLUSH (09:49)
--- NOTE | 2022-09-27 11:40 | MHC.CM.PN ---
Patient appears to c/o fever and body aches r/t her Covid and she appears not yet medically cleared for dc. Home is the goal and CM will continue to follow.
--- NOTE | 2022-09-27 13:28 | PM.EVENT ---
Event Note Date of Service: 09/27/22 Event Note: pt says she wants to go home denies abdl pain tolerating diet describes some joint pains/body aches has been afebrile since last night says she would be more comfortable at home I instructed her on isolating from her young kids because of her COVID positive test she may be having COVID symptoms she looks well I talked to her - he says he understands above and would like to bring her home exam benign Time Spent With Patient Time: Total time managing care of this patient today ____ minutes.
--- NOTE | 2022-09-27 13:42 | MHC.CM.PN ---
Patient has been medically cleared for dc to [facility] today, self care.
[2022-09-27 14:50] VITALS: BP 113/57; PULSE 66; RESP 18; TEMP 36.3; O2SAT 96
--- NOTE | 2022-09-27 14:58 | PC.NURSE ---
Alert and oriented. Denies pain, VSS, afebrile, no acute resp. distress noted. New order to discharge patient home, patient educated on following isolation precautions at home. Went over discharge instructions and follow up apt with patient, verbalized understanding back. Ambulated to the lobby independently, left vi car with .
--- NOTE | 2022-09-29 12:47 | PM.DS ---
DS: Providers Provider Date of Service: 09/27/22 Date of admission: 09/24/22 22:29 Primary care physician: [facility] DS: Diagnosis Discharge Diagnosis (1) Right lower quadrant pain: Status: Acute (2) COVID: Status: Acute DS: Summary Hospital Course Hospital Course: [age] year old female admitted on 09/24/2022 because of right lower quadrant pain. There was concern for acute appendicitis because of some mild dilatation of the appendix. However there were no day appendiceal inflammatory changes. She did not had any leukocytosis. I admitted her for serial abdominal exam. I improved significantly after her 1st hospital day. She did not have any fever. She did not have any leukocytosis at all. I had actually started her on clear liquids and this was slowly advanced. She did have some nausea on her 2nd hospital day. However at that time, her abdominal pain had improved and practically resolved. She was not tender and had a very benign exam. She also complained of some fever and body aches. This were likely manifestation of her COVID infection. She continued to improve however and all her symptoms had resolved on the 3rd hospital day. She was tolerating her diet. She did not have any tenderness so she was discharged. Her initial pain was likely secondary to a ruptured ovarian cyst as suggested by her ultrasound as well. Time Spent with Patient Time attestation: Total time managing care of this patient today ____ minutes. Discharge coordination time: Less than 30 minutes Quality: Safe Use of Opioids Does Pt have an Active Cancer Diagnosis on the Problem List?: No Quality: Stroke Does the patient have a stroke diagnosis?: No Physical Exam Vital Signs: Vital Signs: Last Vital Signs Temp 97.4 F 09/27/22 14:50 Pulse 66 09/27/22 14:50 Resp 18 09/27/22 14:50 BP 113/57 L 09/27/22 14:50 Pulse Ox 96 09/27/22 14:50 O2 Del Method 09/27/22 14:50 BMI result Body Mass Index 20.2 Const: General: comfortable and no acute distress Orientation/consciousness: patient oriented x3 Neck: Neck: Yes no lymphadenopathy Resp: Auscultation: clear to auscultation bilaterally Cardio: Rhythm: regular rhythm GI: Palpation (GI): Soft to palpation, nontender and no guarding Neuro: General: patient oriented x3 DS: Data Data Completed and Pending Labs on day of discharge: Laboratory Results WBC 3.3 X10*3/uL (4.8-10.8) L 09/26/22 07:24 RBC 3.97 X10*6/uL (4.20-5.50) L 09/26/22 07:24 Hgb 11.7 g/dl (12.0-16.0) L 09/26/22 07:24 Hct 35.0 % (37.0-47.0) L 09/26/22 07:24 MCV 88.2 fL (80.0-98.0) 09/26/22 07:24 MCH 29.5 pg (27.0-33.0) 09/26/22 07:24 MCHC 33.4 g/dl (31.0-35.0) 09/26/22 07:24 RDW 11.8 % (11.0-16.0) 09/26/22 07:24 Plt Count 165 X10*3/uL (160-400) 09/26/22 07:24 MPV 10.3 fL (9.4-12.3) 09/26/22 07:24 Immature Gran % (Auto) 0.2 % (0.0-0.4) 09/24/22 17:43 Neut % (Auto) 51.7 % (45-73) 09/24/22 17:43 Lymph % (Auto) 36.1 % (20-40) 09/24/22 17:43 [place] % (Auto) 5.2 % (2-11) 09/24/22 17:43 Eos % (Auto) 5.9 % (0-4) H 09/24/22 17:43 Baso % (Auto) 0.9 % (0-2) 09/24/22 17:43 Lymph # (Auto) 1.6 X10*3/uL (1.2-4.9) 09/24/22 17:43 [place] # (Auto) 0.2 X10*3/uL (0.1-1.2) 09/24/22 17:43 Eos # (Auto) 0.3 X10*3/uL (0.0-0.4) 09/24/22 17:43 Baso # (Auto) 0.0 X10*3/uL (0.0-0.2) 09/24/22 17:43 Abs Immat Gran (auto) 0.01 X10*3/uL (0.00-0.03) 09/24/22 17:43 Absolute Neuts (auto) 2.3 x10*3/uL (2.0-8.3) 09/24/22 17:43 Absolute Nucleated RBC 0.000 X10*3/uL (0.0-0.012) 09/26/22 07:24 Nucleated RBC % (auto) 0.0 /100WBC (0.0-0.2) 09/26/22 07:24 PT 11.5 SEC (10.0-13.1) 09/24/22 17:43 INR 1.0 (0.9-1.1) 09/24/22 17:43 Sodium 138 mmol/L (135-145) 09/26/22 07:24 Potassium 4.0 mmol/L (3.3-5.1) 09/26/22 07:24 Chloride 109 mmol/L (96-108) H 09/26/22 07:24 Carbon Dioxide 24 mmol/L (22-29) 09/26/22 07:24 Anion Gap 9 (12-20) L 09/26/22 07:24 BUN 6 mg/dL (9-16) L 09/26/22 07:24 Creatinine 0.66 mg/dL (0.5-1.4) 09/26/22 07:24 Estim Creat Clear Calc 116.1 09/26/22 07:24 Estimated GFR > 60 09/26/22 07:24 Random Glucose 84 mg/dL (60-115) 09/26/22 07:24 Calcium 8.2 mg/dL (8.4-10.2) L 09/26/22 07:24 Magnesium 2.1 mg/dL (1.6-2.6) 09/24/22 17:43 Total Bilirubin 0.2 mg/dL (0.0-1.0) 09/24/22 17:43 AST 14 U/L (5-31) 09/24/22 17:43 ALT 10 U/L (0-31) 09/24/22 17:43 Alkaline Phosphatase 61 U/L (39-117) 09/24/22 17:43 Total Protein 6.6 g/dL (6.5-8.0) 09/24/22 17:43 Albumin 3.9 g/dL (3.5-5.0) 09/24/22 17:43 Lipase 12 U/L (8-78) 09/24/22 17:43 Beta HCG, Quant < 2 mIU/mL 09/24/22 17:43 Urine Color Yellow 09/26/22 17:45 Urine Appearance Clear 09/26/22 17:45 Urine pH 7.0 (5.0-9.0) 09/26/22 17:45 Ur Specific [place] 1.010 (1.005-1.025) 09/26/22 17:45 Urine Protein Negative mg/dL (Neg-Trace) 09/26/22 17:45 Urine Glucose (UA) Negative mg/dL (Negative) 09/26/22 17:45 Urine Ketones Trace mg/dL (Negative) 09/26/22 17:45 Urine Blood Negative (Negative) 09/26/22 17:45 Urine Nitrite Negative (Negative) 09/26/22 17:45 Ur Leukocyte Esterase Small (1+) (Negative) H 09/26/22 17:45 Urine RBC 0-2 /HPF (0-2) 09/26/22 17:45 Urine WBC 0-5 /HPF (0-5) 09/26/22 17:45 Ur Squamous Epith Cells 0-2 /HPF (0-2) 09/26/22 17:45 Urine Bacteria None Seen (None Seen) 09/26/22 17:45 Hyaline Casts 0-2 /LPF (0-2) 09/26/22 17:45 Influenza Type A (PCR) NEGATIVE (Negative) 09/24/22 17:43 Influenza Type B (PCR) NEGATIVE (Negative) 09/24/22 17:43 RSV RNA Qual (PCR) NEGATIVE (Negative) 09/24/22 17:43 SARS-CoV-2 RNA (RT-PCR) POSITIVE (Negative) A 09/24/22 17:43 Impressions Doppler Study Ultrasound 09/24/22 18:06 IMPRESSION: 1. Normal uterus and ovaries. No adnexal cyst or mass. No evidence of ovarian torsion. 2. No free pelvic fluid. Pelvis Ultrasound 09/24/22 18:06 IMPRESSION: 1. Normal uterus and ovaries. No adnexal cyst or mass. No evidence of ovarian torsion. 2. No free pelvic fluid. Appendix Ultrasound 09/24/22 18:16 IMPRESSION: Findings suspicious for acute appendicitis. No findings of perforation or abscess. Abdomen/Pelvis CT 09/24/22 20:32 IMPRESSION: 1. The appendix is mildly enlarged at 7 to 8 mm in size without air in the lumen. There is no appendicolith or periappendiceal inflammatory changes seen. Findings may represent early appendicitis. 2. Dilated proximal left ovarian vein with reflux. 3. Probable ruptured right ovarian cyst. 4. Incidental note made of benign hepatic cyst, scoliosis and degenerative changes in the spine. Fleischner guidelines were followed. Discharge Plan Discharge Patient Disposition: Home, Self-Care Discharge Diagnosis: RLQ abd pain Referrals: [facility] [Primary [facility] - 1 Week Discharge Medications: Continued No Known Home Meds Discharge Orders: Discharge Order (Routine); Ordered 09/27/22 Ordered By: Gerard Key Diet: Advance to usual diet Activity on Discharge: As tolerated Stand Alone Forms: Patient Portal Discharge page Activity Restrictions/Additional Instructions: Call Your Doctor If: ? ? -Your temperature exceeds 101.5? F? ? ? -You experience excessive pain or swelling ? ? -You have an unexpected reaction to medication ? ? -You experience continued vomiting/nausea Observe isolation from family for 5 days after resolution of COVID symptoms Care Plan Goals: Return to baseline health and gradual return to activity. Health Concerns: RLQ abd pain Plan of Treatment: Observation Fu with PCP Assessment: Improved Discharge Date/Time: 09/27/22 15:02
== END 2022-09-27 15:02 | disposition home or self-care (01) ==
LOC: HO.ED 23:01 → HO.EDOVER 09-25 02:23 → HO.IMC 09-25 20:32
PROVIDERS: Physician Assistant Medical; Admitting Provider Surgery; Emergency Provider Emergency Medicine; Visit Provider Surgery
DX: U07.1 COVID-19 (principal); R10.31 Right lower quadrant pain; R50.9 Fever, unspecified
CPT/HCPCS: 0241U; 36415; 74177; 76705; 76856; 80048; 80053; 81001; 83690; 83735; 84702; 85025; 85027; 85610; 87086; 93975; 96361; 96374; 96375; 99219; 99285; J2270; J2405; Q9967

== ENCOUNTER 2023-04-20 10:10 | Outpatient (REF) | payer OTHER, SELFPAY ==
[2023-04-20 10:23] LABS: MANUAL DIFF FLAG NO
[2023-04-20 10:53] LABS: Basophils Percent Auto 1.4 % (0-2); Eosinophils Absolute Auto 0.1 X10*3/uL (0.0-0.4); Eosinophils Percent Auto 4.8 % (0-4); Hematocrit 38.9 % (37.0-47.0); Hemoglobin 12.7 g/dl (12.0-16.0); Imm Gran Abs Auto 0.02 X10*3/uL (0.00-0.03); Imm Gran Pct Auto 0.7 % (0.0-0.4); Lymphocytes Absolute Auto 1.1 X10*3/uL (1.2-4.9); Lymphocytes Percent Auto 38.8 % (20-40); Mean Corpuscular HGB Conc 32.6 g/dl (31.0-35.0); Mean Corpuscular Volume 91.7 fL (80.0-98.0); Mean Platelet Volume 10.5 fL (9.4-12.3); Monocytes Absolute Auto 0.4 X10*3/uL (0.1-1.2); Monocytes Percent Auto 11.9 % (2-11); Neutrophils Absolute Auto 1.3 x10*3/uL (2.0-8.3); Neutrophils Percent Auto 42.4 % (45-73); Platelet Count 187 X10*3/uL (160-400); Red Blood Count 4.24 X10*6/uL (4.20-5.50); Red Cell Distribution Width 12.3 % (11.0-16.0); White Blood Count 2.9 X10*3/uL (4.8-10.8)
[2023-04-20 11:48] LABS: Alanine Aminotransferase 10 U/L (0-31); Albumin Level 4.1 g/dL (3.5-5.0); Alkaline Phosphatase 56 U/L (39-117); Anion Gap 10 (12-20); Aspartate Amino Transferase 15 U/L (5-31); Bilirubin Total 0.3 mg/dL (0.0-1.0); Blood Urea Nitrogen 9 mg/dL (9-16); Calcium 8.8 mg/dL (8.4-10.2); Carbon Dioxide 26 mmol/L (22-29); Chloride 106 mmol/L (96-108); Cholesterol 140 mg/dL; Estimated Glomerular Filt Rate > 60; Glucose Fasting 85 mg/dL (60-99); HDL Cholesterol 52 mg/dL; LDL Cholesterol Calculated 74 mg/dl; Potassium 3.7 mmol/L (3.3-5.1); Sodium 138 mmol/L (135-145); Total Protein 7.1 g/dL (6.5-8.0); Triglycerides 71 mg/dL
[2023-04-20 12:07] LABS: Folate 9.9 ng/mL (> or = 4.0); TSH reflex Free T4 1.48 uIU/mL (0.32-4.0); Vitamin B12 397 pg/mL (200-900); Vitamin D 25-OH Total 36.1 ng/mL (>30)
== END 2023-04-20 10:11 | disposition home or self-care (01) ==
LOC: HO.LAB 10:10
PROVIDERS: PCP Nurse Practitioner Family; Visit Provider Nurse Practitioner Family
DX: Z00.00 Encounter for general adult medical examination without abnormal findings (principal)
CPT/HCPCS: 36415; 80053; 80061; 82306; 82607; 82746; 84443; 85025

== ENCOUNTER 2023-06-07 14:56 | Outpatient (AMB) | payer OTHER, SELFPAY ==
--- NOTE | 2023-06-07 14:59 | MHC.OFFVIS ---
Intake Vital Signs 06/07/23 15:01 Height 5 ft 6 in Weight 136 lb BMI 21.9 BP 120/60 Intake Visit Reasons: New patient Annual/DO NOT RS Information Interpreted: non-clinical & clinical Allergies No Known Allergies Allergy (Verified 06/07/23 15:01) Is last menstrual period known: Yes Last menstrual period: 05/21/23 Post menopausal: No Patient : No HPI New patient Annual/DO NOT RS HPI Details Patient is here for an annual exam she has gone other places for Pap smears in the past does not think she ever had an abnormal Pap smear. Gets regular periods had her tubes tied for control and does not have any polymer specialist concerns on questioning she does say that sometimes she gets a odor and it usually is after sex. When offered she said she would get STI testing. And teaching about Kegel's she volunteered that sometime she does lose urine with stress [facility] Medical History COVID Dizziness Encounter to establish care Right lower quadrant pain Ruptured ovarian cyst Shortness of breath Surgical History History of appendectomy History of tubal ligation Social History Household Members: Spouse Housing: Apartment Do you presently have visiting nurse or other home services: No Alcohol intake: never Patient Tobacco Use Status: Never used Tobacco e-Cigarette/Vaping Use: Never Used Second Hand Smoke Exposure: No Patient : No service: No Current occupational status: unemployed Cognitive needs: No Hearing needs: No Vision needs: No Female Reproductive History Menstrual Date of last menstrual period: 05/21/23 control method: none Total pregnancies: 2 Number of Living Children: 2 Physical Exam Vital Signs: Last Vital Signs BP 120/60 06/07/23 15:01 BMI result Body Mass Index 21.9 Const General: healthy appearing, comfortable, no acute distress, well developed and alert Nutritional Appearance: average body habitus Orientation/consciousness: patient oriented x3 Limitations: no limitations HEENT Head: Yes normocephalic Neck Neck: Yes normal visual inspection Chest Chest palpation & inspection: normal inspection of the chest Breast/axilla inspection: normal inspection of the breasts and normal inspection of the axillae Breast/axilla palpation: normal palpation of the breasts and normal palpation of the axillae Resp Effort & Inspection: normal respiratory effort GI Inspection: Yes normal to inspection, No Abdominal wall edema and No distended Palpation (GI): Soft to palpation and nontender Other: External exam completely within normal limits vagina pink moist. Cervix multiparous evidence of scarring/laceration at 02:00 o'clock and 07:00 o'clock consistent with prolonged 2nd stage possible 0 P presentation mucosa is pink and healthy. Uterus is small retroverted firm nontender. Fairly lax tone elicited with Kegel General: Yes bladder normal to palpation External Female Exam: normal external appearance and normal appearance of the urethra Speculum Exam - Vagina: normal appearance of the vagina, normal palpation and normal vaginal discharge Speculum Exam - Cervix: normal appearance of the cervix, normal palpation and nontender Bimanual exam- vagina & uterus: normal bimanual exam, normal palpation, uterine size normal, bladder normal to palpation, consistency normal, normal palpation, uterine mobility normal, uterine shape normal, No Cervical tenderness present, non-tender and no cervical motion tenderness Bimanual Exam- Adnexa, other: normal adnexae, no masses, normal and No adnexal tenderness Neuro General: patient oriented x3 Results Reviewed Results Reviewed: Patient: Khadijah Carlos MR#: [id number] : 1990 Acct:[id number] Age/Sex: 31 / F ADM Date: 09/24/22 Loc: .ED Attending Dr: Ordering Physician: Kalie Shrestha Date of Service: 09/24/22 Procedure(s): US pelvic complete Accession Number(s): [id number] cc: Kalie Shrestha~ EXAMINATION:? US PELVIS CLINICAL INFORMATION:? Right lower quadrant pain and fevers COMPARISON: Appendiceal ultrasound performed the same day TECHNIQUE: Ultrasound of the pelvis is performed using both transabdominal and transvaginal transducers along with Doppler. Transvaginal imaging is performed due to inadequate visualization transabdominally. FINDINGS: Uterus: The uterus is anteverted and measures 10.9 x 5.8 x 5.3 cm.? Couple small nabothian cysts noted in the cervix. The double wall endometrial thickness is 1.7 mm.? The uterus is smooth in contour and has normal myometrial echogenicity. ? No visible fibroid. Adnexa: Both ovaries are visualized. There is normal color flow to the adnexa. There is no ovarian torsion.? There is no pelvic ascites or fluid collection. Right ovary measures 3.2 x 2.3 x 2.1, volume 8.1 mL. No cyst or mass identified. Left ovary measures 2.7 x 2.1 x 1.8, volume 5.3 mL. No cyst or mass identified. US/US pelvic complete IMPRESSION: 1.? Normal uterus and ovaries. No adnexal cyst or mass. No evidence of ovarian torsion. 2.? No free pelvic fluid. ? Dictated By: Scout Calles Signed By: <Electronically signed by Scout? Stevan in [place]> 09/24/22 1849 DD/ [address] [place] [id number] [address] Scan Report Signed Patient: Khadijah Carlos MR#: [id number] : 1990 Acct:[id number] Age/Sex: 31 / F ADM Date: 09/24/22 Loc: HO.ED Attending Dr: Ordering Physician: Daniel Reyes MD Date of Service: 09/24/22 Procedure(s): CT abdomen pelvis w IV con Accession Number(s): [id number] cc: Daniel Reyes MD~ EXAMINATION: CT ABDOMEN AND PELVIS WITH CONTRAST? CLINICAL INFORMATION: Right lower quadrant? COMPARISON: Ultrasound performed 09/24/2022? TECHNIQUE: Multidetector volumetric images were obtained from the superior aspect of the liver through the pubic symphysis following administration 85 mL of Omnipaque 350 intravenous contrast. Sagittal and coronal reformatted images were obtained on the technologist's workstation.? Oral contrast: No This CT examination was performed using dose optimization techniques as appropriate, variously including the following: *Automated exposure control *Adjustment of mA and/or kV according to patient size (this includes techniques or standardized protocols for targeted exams where dose is matched to indication/reason for exam; i.e. extremities or head) *Use of iterative reconstruction technique DLP: 821 mGy-cm FINDINGS: LUNG BASES: The visualized lung bases are unremarkable.? LIVER, GALLBLADDER, AND BILIARY TREE: The liver is normal in size, shape, and attenuation. A small 1 cm cyst is noted just beneath the dome of the right hemidiaphragm. No focal hepatic lesion or biliary ductal dilatation is present. The gallbladder is unremarkable with no evidence of radiopaque gallstones, gallbladder wall thickening, or obvious pericholecystic inflammatory changes.? PANCREAS: Unremarkable.? SPLEEN: Unremarkable.? ADRENAL GLANDS: Unremarkable.? KIDNEYS AND URETERS: The kidneys are normal in size, shape, and attenuation. No hydronephrosis, hydroureter, or calculi seen. No perinephric stranding. ? BLADDER: Unremarkable.? GASTROINTESTINAL TRACT: The small and large bowel are unremarkable. The appendix is mildly enlarged at 7 to 8 mm in size. There is no air within the appendix. There is no appendicolith. No periappendiceal inflammatory changes are seen.? ABDOMINAL WALL: No significant hernia is appreciated.? LYMPH NODES: No retroperitoneal lymphadenopathy VASCULAR: Unremarkable. The proximal left ovarian vein is dilated with reflux demonstrated. No large pelvic varices are seen. PELVIC VISCERA: The uterus and adnexa are unremarkable. The right ovary, there is enhancing small ovoid collapsed structure which may be a ruptured cyst measuring about 2 cm in size. No free intraperitoneal fluid. OSSEOUS STRUCTURES: Scoliosis convex to left.? CT/CT abdomen pelvis w IV con IMPRESSION: 1.? The appendix is mildly enlarged at 7 to 8 mm in size without air in the lumen. There is no appendicolith or periappendiceal inflammatory changes seen. Findings may represent early appendicitis. 2.? Dilated proximal left ovarian vein with reflux. 3.? Probable ruptured right ovarian cyst. 4.? Incidental note made of benign hepatic cyst, scoliosis and degenerative changes in the spine. ? Fleischner guidelines were followed. Dictated By: Ferny Storey MD Signed By: <Electronically signed by Ferny Storey MD in [place]> 09/24/222099 DD/ 31 TD/TT:? [employer]: SS Assessment & Plan Assessment & Plan (1) Cervical cancer screening: Code(s): Z12.4 - Encounter for screening for malignant neoplasm of cervix (2) Screen for sexually transmitted diseases: Code(s): Z11.3 - Encounter for screening for infections with a predominantly sexual mode of transmission (3) Breast cancer screening: Code(s): Z12.39 - Encounter for other screening for malignant neoplasm of breast (4) Pelvic floor weakness: Code(s): N81.89 - Other female genital prolapse (5) Ruptured ovarian cyst: Code(s): N83.209 - Unspecified ovarian cyst, unspecified side Plan Patient is here for an annual exam she has gone other places for Pap smears in the past does not think she ever had an abnormal Pap smear. Gets regular periods had her tubes tied for control and does not have any polymer specialist concerns on questioning she does say that sometimes she gets a odor and it usually is after sex. When offered she said she would get STI testing. And teaching about Kegel's she volunteered that sometime she does lose urine with stress. And I was explaining to her about her retroverted uterus and the scar at her cervix and relating it to her prolonged pushing in labor probably related to the position of the baby head in descent. And also teaching her about Kegel exercises and offering her PT. She then also volunteered that she had been told that she had ovarian cysts in the past and that she should follow-up about them to this is at the very very very end of the visit, as she was about to leave. Previous ultrasound and CT scan reviewed from September 2022 ultrasound did not see or site cyst but CT scan mentioned probable ruptured ovarian cyst possible. So will order a follow-up ultrasound for patient as she voiced concern about this and we will have a follow-up visit after that Teaching done about Kegel's in detail as well as her retroverted uterus and why her cervix has the appearance it has. It is not of consequence now but evidence of her difficult labor. Orders: Orders Hepatitis B Surface Antigen Today N81.89 - Other female genital prolapse, Z11.3 - Encounter for screening for infections with a predominantly sexual mode of transmission, Z12.39 - Encounter for other screening for malignant neoplasm of breast, Z12.4 - Encounter for screening for malignant neoplasm of cervix Hepatitis C Antibody Today N81.89 - Other female genital prolapse, Z11.3 - Encounter for screening for infections with a predominantly sexual mode of transmission, Z12.39 - Encounter for other screening for malignant neoplasm of breast, Z12.4 - Encounter for screening for malignant neoplasm of cervix HIV Ab/Ag Today N81.89 - Other female genital prolapse, Z11.3 - Encounter for screening for infections with a predominantly sexual mode of transmission, Z12.39 - Encounter for other screening for malignant neoplasm of breast, Z12.4 - Encounter for screening for malignant neoplasm of cervix Syphilis Screen Today N81.89 - Other female genital prolapse, Z11.3 - Encounter for screening for infections with a predominantly sexual mode of transmission, Z12.39 - Encounter for other screening for malignant neoplasm of breast, Z12.4 - Encounter for screening for malignant neoplasm of cervix Bacterial Vaginosis Panel Today Z01.419 - Encounter for gynecological examination (general) (routine) without abnormal findings CT NG by PCR Today Z01.419 - Encounter for gynecological examination (general) (routine) without abnormal findings US pelvic and transvaginal Today N81.89 - Other female genital prolapse, N83.209 - Unspecified ovarian cyst, unspecified side, Z11.3 - Encounter for screening for infections with a predominantly sexual mode of transmission, Z12.39 - Encounter for other screening for malignant neoplasm of breast, Z12.4 - Encounter for screening for malignant neoplasm of cervix Pap Smear Today Z01.419 - Encounter for gynecological examination (general) (routine) without abnormal findings Coding Level of Care Code New Pt Prev Care 18-39yr([id number] Diagnoses Cervical cancer screening Z12.4 Screen for sexually transmitted diseases Z11.3 Breast cancer screening Z12.39 Pelvic floor weakness N81.89 Ruptured ovarian cyst N83.209
[2023-06-07 15:01] VITALS: BP 120/60; BMI 21.9
== END 2023-06-07 16:21 | disposition home or self-care (01) ==
PROVIDERS: PCP Nurse Practitioner Family; Visit Provider Advanced Practice Midwife
DX: Z01.419 Encounter for gynecological examination (general) (routine) without abnormal findings (principal); Z11.3 Encounter for screening for infections with a predominantly sexual mode of transmission; Z12.39 Encounter for other screening for malignant neoplasm of breast; N81.89 Other female genital prolapse; N83.209 Unspecified ovarian cyst, unspecified side
CPT/HCPCS: 99385

== ENCOUNTER 2023-06-07 14:56 | Outpatient (REF) | payer OTHER, SELFPAY ==
[2023-06-07 18:42] LABS: CT PCR NOT DETECTED (Not Detect.); NG PCR NOT DETECTED (Not Detect.)
[2023-06-08 12:09] LABS: BV Int Neg Control Negative (Negative); BV Int Pos Control Positive (Positive)
[2023-06-12 18:49] LABS: HPV mRNA E6/E7 rflx Not Detected (Not Detected)
== END 2023-06-07 14:57 | disposition home or self-care (01) ==
LOC: HO.LNP 14:56
PROVIDERS: PCP Nurse Practitioner Family; Visit Provider Advanced Practice Midwife
DX: Z01.419 Encounter for gynecological examination (general) (routine) without abnormal findings (principal); Z11.51 Encounter for screening for human papillomavirus (HPV); N81.89 Other female genital prolapse; N83.209 Unspecified ovarian cyst, unspecified side
CPT/HCPCS: 0353U; 87480; 87510; 87624; 87660; 88142

== ENCOUNTER 2023-09-27 11:38 | Outpatient (AMB) | payer OTHER, SELFPAY ==
--- NOTE | 2023-09-27 11:42 | A.OFFPC_ITS ---
Vital Signs 09/27/23 11:43 Height 5 ft 6 in Weight 134 lb 8 oz BMI 21.7 BP 100/68 Blood Pressure Location Lt brachial Position Sitting Pulse 98 Pulse Source Pulse Oximeter Pulse Oximetry (%) 99 Oxygen Delivery Method Room Air Intake Visit Reasons: form Intake Note: Patient is here today for a form to be filled out. [employer] Assembly Supervisor Required: Yes Information Interpreted: non-clinical & clinical Data Analytics Chief Scientist: Not Required per policy Accompanied by: Self / Same As Patient Allergies No Known Allergies Allergy (Verified 09/27/23 13:47) Medication List - Last Reconciled 09/27/23 by Josiah Horne MD No Known Home Meds Tobacco use date assessed: 09/27/23 Dental Screening Dental Screen Date: 09/27/23 Did you have a dental visit in the last 12 months?: Yes Did you have a dental problem in the last 6 months where you did not have access to dental care?: No Was dental information given to patient?: Patient has dentist HPI form HPI Details 32-year-old female presents to the [facility] requesting a pre-employment clearance. 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 [facility] Medical History COVID Dizziness Encounter to establish care Right lower quadrant pain Ruptured ovarian cyst Shortness of breath Surgical History History of appendectomy History of tubal ligation Social History Household Members: Spouse Housing: Apartment Do you presently have visiting nurse or other home services: No Alcohol intake: never Patient Tobacco Use Status: Never used Tobacco e-Cigarette/Vaping Use: Never Used Second Hand Smoke Exposure: No service: No Current occupational status: unemployed Cognitive needs: No Hearing needs: No Vision needs: No Questionnaire Thrive Questionnaire Date Thrive assessed: 02/06/23 DELORIS-7 AMB Questionnaire DELORIS-7 Date DELORIS - 7 assessed: 02/06/23 Source: Developed by Drs. Uriel Gallego, Cecilia Llanos, Michelet Flores and colleagues, with an educational john from [employer]. Physical exam (Primary Care) Vital Signs: Last Vital Signs Pulse 98 09/27/23 11:43 BP 100/68 09/27/23 11:43 Pulse Ox 99 09/27/23 11:43 Oxygen Delivery Method Room Air 09/27/23 11:43 BMI result Body Mass Index 21.7 Tobacco/Smoking Status: Tobacco use Status Tobacco use date assessed 09/27/23 09/27/23 11:46 Patient Tobacco Use Status Never used Tobacco 09/27/23 11:46 e-Cigarette/Vaping Use Never Used 09/27/23 11:46 Thrive Assessment: Date of Thrive Assessment Date Thrive assessed 02/06/23 09/27/23 11:46 Const General: cooperative and healthy appearing Nutritional Appearance: well nourished Orientation/consciousness: patient oriented x3 Limitations: no limitations HENMT Head: Yes normal to inspection Eyes General: appearance normal, both eyes and all related structures Neck Neck: Yes normal visual inspection Chest Chest palpation & inspection: normal palpation of entire chest wall Resp Effort & Inspection: normal respiratory effort Neuro General: patient oriented x3 Assessment and Plan Assessment & Plan (1) Physical exam, pre-employment: Code(s): Z02.1 - Encounter for pre-employment examination Plan: Vision was checked in the office and it was 20/20 in both eyes. Her color vision was normal. TB testing has been requested. If the results are negative the form will be signed. Orders: Orders T Spot TB Today Z02.0 - Encounter for examination for admission to educational institution Coding Level of Care Code Est Pt Prev Care 18-39y(47150) Diagnoses Physical exam, pre-employment Z02.1
[2023-09-27 11:43] VITALS: BP 100/68; PULSE 98; O2SAT 99; BMI 21.7
== END 2023-09-27 12:23 | disposition home or self-care (01) ==
PROVIDERS: PCP Nurse Practitioner Family; Visit Provider Internal Medicine
DX: Z02.1 Encounter for pre-employment examination (principal)
CPT/HCPCS: 99214

== ENCOUNTER 2023-09-27 12:27 | Outpatient (REF) | payer OTHER, SELFPAY ==
[2023-09-30 15:53] LABS: TS Negative Control Passed; TS Panel A 0; TS Panel B 0; TS Positive Control Passed; TSpotTB Negative (Negative)
== END 2023-09-27 12:28 | disposition home or self-care (01) ==
LOC: HO.LAB 12:27
PROVIDERS: PCP Internal Medicine; Visit Provider Internal Medicine
DX: Z02.0 Encounter for examination for admission to educational institution (principal)
CPT/HCPCS: 36415; 86481

== ENCOUNTER 2024-06-26 12:13 | Emergency (ER) | payer OTHER, SELFPAY ==
--- NOTE | ~2024-06-26 | XR_ITS ---
EXAMINATION: XR ABDOMEN KUB CLINICAL INDICATION: Possible constipation COMPARISON: 09/24/2022 CT scan TECHNIQUE: AP view of the abdomen. FINDINGS: Unremarkable bowel gas pattern. Scattered dual and air seen throughout colon with no obvious and stool burden. No small bowel dilatation to suggest obstruction. Mild scoliotic curve to the lumbar spine. No suspicious calcifications. XR/XR KUB IMPRESSION: Unremarkable bowel gas pattern. No significant stool burden. Electronically signed by: Thom Dong MD 06/26/2024 06:55 PM EDT
--- NOTE | ~2024-06-26 | US_ITS ---
EXAMINATION: US PELVIS CLINICAL INFORMATION: Pelvic pain. COMPARISON: Ultrasound pelvis September 24, 2022. CT scan abdomen and pelvis September 24, 2022 TECHNIQUE: Ultrasound of the pelvis is performed using both transabdominal and transvaginal transducers along with Doppler. Transvaginal imaging is performed due to inadequate visualization transabdominally. FINDINGS: Uterus: The uterus is anteverted and anteflexed and measures 8.4 x 5.4 x 5.2 cm. The double wall endometrial thickness is 13 mm. The uterus is smooth in contour and has normal myometrial echogenicity. No visible fibroid. Adnexa: Both ovaries are visualized. There is normal color flow to the adnexa. There is no ovarian torsion. There is no pelvic ascites or fluid collection. Right ovary measures 3.6 x 2.4 x 2.5 cm. Volume 11.2 mL Left ovary measures 2.7 x 1.9 x 1.6 cm. Volume 4.2 mL US/US pelvic ovarian doppler IMPRESSION: Normal ultrasound of pelvis. Electronically signed by: Juan David Quintanilla MD 06/26/2024 04:24 PM EDT
--- NOTE | ~2024-06-26 | US_ITS ---
EXAMINATION: US PELVIS CLINICAL INFORMATION: Pelvic pain. COMPARISON: Ultrasound pelvis September 24, 2022. CT scan abdomen and pelvis September 24, 2022 TECHNIQUE: Ultrasound of the pelvis is performed using both transabdominal and transvaginal transducers along with Doppler. Transvaginal imaging is performed due to inadequate visualization transabdominally. FINDINGS: Uterus: The uterus is anteverted and anteflexed and measures 8.4 x 5.4 x 5.2 cm. The double wall endometrial thickness is 13 mm. The uterus is smooth in contour and has normal myometrial echogenicity. No visible fibroid. Adnexa: Both ovaries are visualized. There is normal color flow to the adnexa. There is no ovarian torsion. There is no pelvic ascites or fluid collection. Right ovary measures 3.6 x 2.4 x 2.5 cm. Volume 11.2 mL Left ovary measures 2.7 x 1.9 x 1.6 cm. Volume 4.2 mL US/US pelvic and transvaginal IMPRESSION: Normal ultrasound of pelvis. Electronically signed by: Juan David Quintanilla MD 06/26/2024 04:24 PM EDT
[2024-06-26 12:21] VITALS: BP 125/80; PULSE 75; RESP 16; TEMP 37; O2SAT 100; BMI 22.7
--- NOTE | 2024-06-26 12:22 | ED.ABDPAIN ---
HPI - Abdominal Pain General Chief Complaint: Abdominal Pain Stated Complaint: R abd pain Time Seen by Provider: 06/26/24 16:42 Source: patient, RN notes reviewed, old records reviewed and site interpreter Mode of arrival: ambulatory Limitations: language barrier History of Present Illness ED Provider: Rod HPI narrative: 33-year-old female with past medical history significant for appendectomy, ovarian cyst presents for evaluation of lower abdominal pain. Patient states that she ?always has right lower abdominal pain. ? She states that since last night her pain has been worse since she had associated headache and dizziness Patient reports that her pain feels similar to previous ovarian cysts that she has had She was nauseous without vomiting earlier Denies any difficulty urinating, blood in the urine. Denies any vaginal bleeding or discharge Her pain is a 9/10, stabbing, worse with movement especially bending over Patient states that she has a bowel movement approximately once per week Related Data Previous Rx's ?Medication ?Instructions ?Recorded magnesium citrate 300 ml PO DAILY PRN constipation 06/26/24 #296 mL polyethylene glycol 3350 17 17 g PO DAILY 2 weeks #238 grams 06/26/24 gram/dose oral powder (ClearLax) Allergies Allergy/AdvReac Type Severity Reaction Status Date / Time No Known Allergies Allergy Verified 06/26/24 12:25 Review of Systems Constitutional: Denies body ache(s), Denies chills, Denies fever(s) and Reports headache(s) Reports headache(s) and Denies sore throat Cardiovascular: Denies chest pain and Denies dyspnea Respiratory: Denies cough and Denies dyspnea Gastrointestinal: Reports abdominal pain, Reports constipation, Reports nausea and Denies vomiting Genitourinary: Denies dysuria, Denies pelvic pain and Denies vaginal discharge Musculoskeletal: Denies back pain Skin/Breast: Denies rash Reports headache(s) PMF Past Medical History Medical History COVID Dizziness Encounter to establish care Right lower quadrant pain Ruptured ovarian cyst Shortness of breath Surgical History History of appendectomy History of tubal ligation Social History Social History Household Members: Spouse Housing: Apartment Do you presently have visiting nurse or other home services: No Alcohol intake: never Patient Tobacco Use Status: Never used Tobacco e-Cigarette/Vaping Use: Never Used Second Hand Smoke Exposure: No Advance Directives: No Advance Directives Information Provided: No Do you have a plan to hurt others: No Plan service: No Current occupational status: unemployed Cognitive needs: No Hearing needs: No Vision needs: No Physical Exam ED Vital Signs: Vital Signs - 24 hr 06/26/24 12:21 06/26/24 16:38 Temperature 98.6 F 98 F Pulse Rate 75 71 Respiratory Rate 16 16 Blood Pressure 125/80 117/82 Pulse Oximetry 100 100 Oxygen Delivery Method Room Air Room Air BMI result Body Mass Index 22.7 Const General: healthy appearing, comfortable, no acute distress, alert and awake Nutritional Appearance: well nourished Orientation/consciousness: patient oriented x3 HENMT Head: Yes normocephalic and Yes atraumatic Eyes Eyelids: Yes eyelids normal Conjunctivae: conjunctivae normal Sclerae: sclerae normal Corneas: corneas normal Pupils: Equal, round and reactive pupils present EOM: EOMs intact bilaterally Neck Neck: Yes full ROM Resp Effort & Inspection: normal respiratory effort, able to speak in complete sentences and not labored GI Inspection: No distended Palpation (GI): Soft to palpation, not firm, Tenderness to palpation present (GI) in the RLQ, no guarding and not rigid Auscultation: normoactive bowel sounds Skin General skin exam: elasticity normal Neuro General: patient oriented x3 Cranial nerves: Yes Equal, round and reactive pupils present and Yes Bilaterally intact EOM present Cognition (Neuro): normal cognition Extrem Other: Moving all extremities well without any obvious deformities Course Course Course Narrative: This is a Rapid Medical Examination (RME) performed by Susu Polk PA-C in triage. Full HPI, ROS, assessment and treatment plan per primary provider in the Main ED. 33 yo female with history of ovarian cysts, s/p appendectomy presents to the ER for evaluation of 10/10 right lower pelvic pain that is intermittent. +N/V no diarrhea. LMP last week, denies chance of . no vaginal discharge or concern for STI. also endorsing dizziness and headache. Plan: labs, covid, pelvic U/S w/ doppler Medical Decision Making Medical Decision Making MDM Narrative: This is a healthy 33-year-old female presents for evaluation of right lower abdominal pain. Her labs are reviewed and reassuring, she always has a mild leukopenia of unclear significance, her physical exam is reassuring, she has tenderness in the right lower quadrant but no rebound or guarding, the abdomen is soft and nondistended. She is status post appendectomy, she appears quite comfortable, I have a low suspicion for ovarian torsion. She had an ultrasound of the pelvis ordered which does not show any evidence of torsion, no ovarian cyst either.. The patient reports that she only has a bowel movement approximately once per week, her pain is reproducible, I suspect constipation is the cause of her abdominal pain. A KUB was ordered, urinalysis is also clear Differential Diagnosis Differential Diagnoses: The differential diagnosis associated with the presentation includes Constipation Abdominal pain Ovarian torsion Ovarian cyst Lab Data MDM Lab Attestation statement: I reviewed the patient's lab results. 06/26/24 12:31 06/26/24 12:31 Labs: Lab Results 06/26/24 06/26/24 Range/Units 12:31 16:42 WBC 3.7 L (4.8-10.8) X10*3/uL RBC 4.53 (4.20-5.50) X10*6/uL Hgb 13.2 (12.0-16.0) g/dl Hct 39.9 (37.0-47.0) % MCV 88.1 (80.0-98.0) fL MCH 29.1 (27.0-33.0) pg MCHC 33.1 (31.0-35.0) g/dl RDW 12.4 (11.0-16.0) % Plt Count 188 (160-400) X10*3/uL MPV 10.1 (9.4-12.3) fL Immature Gran % (Auto) 0.3 (0.0-0.4) % Neut % (Auto) 45.4 (45-73) % Lymph % (Auto) 44.7 H (20-40) % [place] % (Auto) 5.5 (2-11) % Eos % (Auto) 2.5 (0-4) % Baso % (Auto) 1.6 (0-2) % Lymph # (Auto) 1.6 (1.2-4.9) X10*3/uL [place] # (Auto) 0.2 (0.1-1.2) X10*3/uL Eos # (Auto) 0.1 (0.0-0.4) X10*3/uL Baso # (Auto) 0.1 (0.0-0.2) X10*3/uL Abs Immat Gran (auto) 0.01 (0.00-0.03) X10*3/uL Absolute Neuts (auto) 1.7 L (2.0-8.3) x10*3/uL Absolute Nucleated RBC 0.000 (0.0-0.012) X10*3/uL Nucleated RBC % (auto) 0.0 (0.0-0.2) /100WBC Sodium 139 (135-145) mmol/L Potassium 3.8 (3.3-5.1) mmol/L Chloride 106 (96-108) mmol/L Carbon Dioxide 29 (22-29) mmol/L Anion Gap 8 L (12-20) BUN 7 L (9-16) mg/dL Creatinine 0.77 (0.5-1.4) mg/dL Estim Creat Clear Calc 102.9 Estimated GFR > 60 Random Glucose 106 (60-115) mg/dL Calcium 8.7 (8.4-10.2) mg/dL Magnesium 2.1 (1.6-2.6) mg/dL Total Bilirubin 0.4 (0.0-1.0) mg/dL Direct Bilirubin 0.1 (0.0-0.5) mg/dL AST 16 (5-31) U/L ALT 11 (0-31) U/L Alkaline Phosphatase 59 (39-117) U/L Total Protein 6.8 (6.5-8.0) g/dL Albumin 3.8 (3.5-5.0) g/dL Beta HCG, Quant < 2 mIU/mL Urine Color Yellow Urine Appearance Clear Urine pH 8.0 (5.0-9.0) Ur Specific [place] 1.015 (1.005-1.025) Urine Protein Negative (Neg-Trace) mg/dL Urine Glucose (UA) Negative (Negative) mg/dL Urine Ketones Negative (Negative) mg/dL Urine Blood Negative (Negative) Urine Nitrite Negative (Negative) Ur Leukocyte Esterase Negative (Negative) COVID-19 (ZAYNAB) Negative (Negative) COVID-19 Clin Com See Note Independent Interpretation I performed an independent interpretation of an: Plain X-Ray (Moderate stool burden especially in the right abdomen) Radiology Impression Discussion of test interpretation with radiology: I have reviewed the radiologist's reading. Radiologist Impression: FINDINGS: Uterus: The uterus is anteverted and anteflexed and measures 8.4 x 5.4 x 5.2 cm. The double wall endometrial thickness is 13 mm. The uterus is smooth in contour and has normal myometrial echogenicity. No visible fibroid. Adnexa: Both ovaries are visualized. There is normal color flow to the adnexa. There is no ovarian torsion. There is no pelvic ascites or fluid collection. Right ovary measures 3.6 x 2.4 x 2.5 cm. Volume 11.2 mL Left ovary measures 2.7 x 1.9 x 1.6 cm. Volume 4.2 mL US/US pelvic ovarian doppler IMPRESSION: Normal ultrasound of pelvis. Electronically signed by: Juan David Quintanilla MD 06/26/2024 04:24 PM EDT Discharge Plan Discharge Clinical Impression: Abdominal pain, Constipation Patient Disposition: Home, Self-Care Instructions: Constipation (ED), High Fiber Diet (ED) Additional Instructions: Your workup in the ER today was reassuring. Your ultrasound did not show any ovarian cysts or evidence of torsion Your x-ray did show significant constipation, especially in the area of your pain/discomfort Increase fluid and fiber intake in your diet Take MiraLax every night for the next 2 weeks You may use magnesium citrate tomorrow to help with the constipation abdominal pain Follow-up with your primary doctor Prescriptions: New polyethylene glycol 3350 [ClearLax] 17 gram/dose powder 17 g PO DAILY 14 Days Qty: 238 0RF magnesium citrate Solution 300 ml PO DAILY PRN (Reason: constipation) Qty: 296 0RF Print Language: Niuean
[2024-06-26 12:36] LABS: MANUAL DIFF FLAG NO
[2024-06-26 12:37] LABS: Basophils Absolute Auto 0.1 X10*3/uL (0.0-0.2); Basophils Percent Auto 1.6 % (0-2); Eosinophils Absolute Auto 0.1 X10*3/uL (0.0-0.4); Eosinophils Percent Auto 2.5 % (0-4); Hematocrit 39.9 % (37.0-47.0); Hemoglobin 13.2 g/dl (12.0-16.0); Imm Gran Abs Auto 0.01 X10*3/uL (0.00-0.03); Imm Gran Pct Auto 0.3 % (0.0-0.4); Lymphocytes Absolute Auto 1.6 X10*3/uL (1.2-4.9); Lymphocytes Percent Auto 44.7 % (20-40); Mean Corpuscular HGB Conc 33.1 g/dl (31.0-35.0); Mean Corpuscular Hemoglobin 29.1 pg (27.0-33.0); Mean Corpuscular Volume 88.1 fL (80.0-98.0); Mean Platelet Volume 10.1 fL (9.4-12.3); Monocytes Absolute Auto 0.2 X10*3/uL (0.1-1.2); Monocytes Percent Auto 5.5 % (2-11); Neutrophils Absolute Auto 1.7 x10*3/uL (2.0-8.3); Neutrophils Percent Auto 45.4 % (45-73); Platelet Count 188 X10*3/uL (160-400); Red Blood Count 4.53 X10*6/uL (4.20-5.50); Red Cell Distribution Width 12.4 % (11.0-16.0); White Blood Count 3.7 X10*3/uL (4.8-10.8)
[2024-06-26 13:01] LABS: Alanine Aminotransferase 11 U/L (0-31); Albumin Level 3.8 g/dL (3.5-5.0); Alkaline Phosphatase 59 U/L (39-117); Anion Gap 8 (12-20); Aspartate Amino Transferase 16 U/L (5-31); Bilirubin Direct 0.1 mg/dL (0.0-0.5); Bilirubin Total 0.4 mg/dL (0.0-1.0); Blood Urea Nitrogen 7 mg/dL (9-16); Calcium 8.7 mg/dL (8.4-10.2); Carbon Dioxide 29 mmol/L (22-29); Chloride 106 mmol/L (96-108); Creatinine Clr Calc Pharmacy 102.9; Estimated Glomerular Filt Rate > 60; Glucose Random 106 mg/dL (60-115); Magnesium 2.1 mg/dL (1.6-2.6); Potassium 3.8 mmol/L (3.3-5.1); Sodium 139 mmol/L (135-145); Total Protein 6.8 g/dL (6.5-8.0)
[2024-06-26 13:02] LABS: COVID-19 Test Negative (Negative); HCG Quantitative < 2 mIU/mL; IDNOW Serial# 152EDE1D
[2024-06-26 16:38] VITALS: BP 117/82; PULSE 71; RESP 16; TEMP 36.6; O2SAT 100
--- NOTE | 2024-06-26 16:48 | MHC.EDTECH ---
Vitals and the urine sample completed, patient rest quietly in the bed and call mays within pt reach
[2024-06-26 17:06] LABS: Appearance Urine Clear; Color Urine Yellow; Glucose Urine UA Negative (Negative); Leukocyte Esterase Urine Negative (Negative); Nitrite Urine Negative (Negative); Specific Gravity - Urine 1.015 (1.005-1.025); Urine Blood Negative (Negative); Urine Ketones Negative (Negative); Urine Protein Negative (Neg-Trace)
[2024-06-26 17:53] VITALS: BP 122/76; PULSE 78; RESP 17; TEMP 36.6; O2SAT 98
== END 2024-06-26 17:54 | disposition home or self-care (01) ==
PROVIDERS: Physician Assistant; Emergency Provider Emergency Medicine
DX: K59.00 Constipation, unspecified (principal); R10.31 Right lower quadrant pain; R10.2 Pelvic and perineal pain; Z11.52 Encounter for screening for COVID-19; R51.9 Headache, unspecified
CPT/HCPCS: 36415; 74018; 76830; 76856; 80048; 80076; 81003; 83735; 84702; 85025; 87635; 93975; 99284

== ENCOUNTER 2024-10-15 10:19 | Outpatient (AMB) | payer OTHER, SELFPAY ==
[2024-10-15 10:45] VITALS: BP 110/70; PULSE 81; O2SAT 98; BMI 22.6
--- NOTE | 2024-10-15 10:45 | MHC.PC.OV ---
Vital Signs 10/15/24 10:45 Height 5 ft 7 in Weight 144 lb 2 oz BMI 22.6 BP 110/70 Blood Pressure Location Rt brachial Position Sitting Pulse 81 Pulse Source Pulse Oximeter Pulse Oximetry (%) 98 Oxygen Delivery Method Room Air Intake Visit Reasons: Annual PE Intake Note: Patient is here today for a physical. Pt has forms that need to be filled out. 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 per policy Accompanied by: Self / Same As Patient Allergies No Known Allergies Allergy (Verified 10/15/24 14:48) Medication List - Last Reconciled 10/15/24 by Kalie Shrestha PA-C cyclobenzaprine 10 mg PO TID docusate sodium (Colace) 100 mg PO BID meloxicam 15 mg PO DAILY polyethylene glycol 3350 (Miralax) 17 grams PO DAILY Tobacco use date assessed: 10/15/24 Dental Screening Dental Screen Date: 10/15/24 Did you have a dental visit in the last 12 months?: Yes Did you have a dental problem in the last 6 months where you did not have access to dental care?: No Was dental information given to patient?: Patient has dentist HPI HPI Comments History of Present Illness Details 33-year-old female presenting to the primary care office for annual physical exam and employment paper work that has to be filled out. She currently does not have any significant past medical history. She does not take any medications daily. She reports that she does not smoke, drink or use any illicit drugs. She is currently working as a bus aide and this is the paperwork that she will need to be filled out. She required a visual acuity today. She denies wearing any contacts. She lives at home with 2 kids with the and 1 dog. She denies any depression. She had a Pap smear in 2022. She has never had a mammogram or colonoscopy although does not have a history or family history of breast cancer colon cancer in her family therefore low risk. She does admit to occasional constipation. She denies any fevers, chest pain or shortness of breath, abdominal pain, nausea or vomiting, dysuria or any other symptoms complaints or concerns. [facility] Medical History Ruptured ovarian cyst COVID Right lower quadrant pain Shortness of breath Dizziness Encounter to establish care Surgical History History of appendectomy History of tubal ligation Social History Household Members: Spouse Housing: Apartment Do you presently have visiting nurse or other home services: No Alcohol intake: never Patient Tobacco Use Status: Never used Tobacco e-Cigarette/Vaping Use: Never Used Second Hand Smoke Exposure: No service: No Current occupational status: unemployed Cognitive needs: No Hearing needs: No Vision needs: No Questionnaire PHQ-9 Over the last 2 weeks, how often have you been bothered by any of the following problems? 1. Little interest or pleasure in doing things: not at all 2. Feeling down, depressed, or hopeless: not at all 3. Trouble falling or staying asleep, or sleeping too much: not at all 4. Feeling tired or having little energy: not at all 5. Poor appetite or overeating: not at all 6. Feeling bad about yourself - or that you are a failure or have let yourself or your family down: not at all 7. Trouble concentrating on things, such as reading the newspaper or watching television: not at all 8. Moving or speaking so slowly that other people could have noticed. Or the opposite - being so fidgety or restless that you have been moving around a lot more than usual: not at all 9. Thoughts that you would be better off or of hurting yourself in some way: not at all Total score: 0 Depression Screening Interpretation: Negative Depression Screening Done: Yes Source: Developed by Drs. Uriel Gallego, Cecilia Llanos, Michelet Flores and colleagues, with an educational john from [employer]. Thrive Questionnaire Date Thrive assessed: 10/15/24 I am a: Patient What is your living situation today?: I have a steady place to live Within the past 12 months, did the food you bought not last and you didn't have the money to get more?: Never true Within the past 12 months, did you worry whether your food would run out before you got money to buy more?: Never true Do you have trouble paying for medicines?: No Do you have trouble getting transportation to medical appointments?: No Do you have trouble paying your heating and electricity bill?: No Do you have trouble taking care of your child, family member or friend?: No Do you have trouble with day-to-day activities such as bathing, preparing meals, shopping, managing finances, etc.?: No Are you currently unemployed and looking for a job?: No Are you interested in more education?: No Please select the resources that you would like help with: None Currently or been in a relationship where the following occur: No concerns reported THRIVE Score: 0 AUDIT C Alcohol Use Questionnaire (AUDIT-C) 1. How often do you have a drink containing alcohol?: Never 3. How often do you have six or more drinks on one occasion?: Never Total Score: 0 DELORIS-7 AMB Questionnaire DELORIS-7 Date DELORIS - 7 assessed: 10/15/24 Feeling nervous, anxious, or on edge: 0 = Not at all Not being able to stop or control worryin = Not at all Worrying too much about different things: 0 = Not at all Trouble relaxin = Not at all Being so restless that it is hard to sit still: 0 = Not at all Becoming easily annoyed or irritable: 0 = Not at all Feeling afraid as if something awful might happen: 0 = Not at all Total DELORIS-7 score (0-4 normal; 5-9 mild; 10-14 moderate; 15-21 severe): 0 Source: Developed by Drs. Uriel Gallego, Cecilia Llanos, Michelet Flores and colleagues, with an educational john from [employer]. Physical exam (Primary Care) Vital Signs: Last Vital Signs Pulse 81 10/15/24 10:45 BP 110/70 10/15/24 10:45 Pulse Ox 98 10/15/24 10:45 Oxygen Delivery Method Room Air 10/15/24 10:45 Care Plan Goal for BP management: BP today at 110/70 at goal no changed or interventions indicated at this time. BMI result Body Mass Index 22.6 BMI Assessment/Plan discussion: Low BMI Low, Plan discussed: lifestyle, increase calorie intake and dietary Tobacco/Smoking Status: Tobacco use Status Tobacco use date assessed 10/15/24 10/15/24 10:58 Patient Tobacco Use Status Never used Tobacco 10/15/24 10:58 e-Cigarette/Vaping Use Never Used 10/15/24 10:58 PHQ-9: PHQ-9 Score PHQ-9: Total score 0 10/15/24 11:27 Depression Screening Interpretation: Negative Thrive Assessment: Date of Thrive Assessment Date Thrive assessed 10/15/24 10/15/24 10:58 Currently or been in a relationship where the following occur: No concerns reported Const Other: Appearance: Alert. Oriented X3. No acute distress. Head: Normal external exam. Normocephalic. Atraumatic. Eyes: Conjunctiva and sclera normal. Eyelids normal. ENT: MMM. Normal voice. Neck: Normal inspection. Neck supple. FROM. No adenopathy. Thyroid Normal. No meningeal signs. No neck mass noted. CVS: Normal heart rate and rhythm. Heart sound normal. Pulses normal throughout. No murmurs/rales/gallops. Respiratory: No respiratory distress. Painless inspiration. Breath sounds normal. No wheezes/rales/rhonchi noted. Chest nontender. No crepitus is noted. No accessory muscle usage noted or decreased air movement noted. No signs of trauma. Abdomen: Soft and nontender. Nondistended. No guarding. No rigidity. Bowel sounds normal in all 4 quadrants. No distention noted. No organomegaly noted. No visible injury noted. No rebound tenderness. Back: Full range of motion noted. Skin: Skin warm and dry. Normal skin color. Normal skin turgor. No rashes/lesions/lacerations noted. Extremities: No lower extremity edema. No calf tenderness is noted. Extremities exhibit normal range of motion and nontender. Neuro: Oriented X 3. Moving all extremities. Normal steady gait. No focal neuro deficits noted. Vascular: + radial pulses b/l. Normal cap refill. No cyanosis noted. Coding Level of Care Code Est Pt Level 4 (34837) Complex EM visit Add On G2211 Diagnoses Annual physical exam Z00.00 Constipation K59.00 Cervical cancer screening Z12.4 Assessment & Plan Assessment & Plan (1) Annual physical exam: Code(s): Z00.00 - Encounter for general adult medical examination without abnormal findings Category: Medical Plan: Normal annual physical exam. Employment paperwork signed. Will continue to monitor. (2) Constipation: Code(s): K59.00 - Constipation, unspecified Category: Medical Plan: Abdomen is soft and nontender. Will prescribe Colace and MiraLax. No imaging is indicated. Condition is stable. Will continue to monitor. (3) Cervical cancer screening: Comment: 06/07/2023 Pap is negative with negative HPV. Code(s): Z12.4 - Encounter for screening for malignant neoplasm of cervix Category: Medical Plan: Condition is stable. Will continue to monitor. Plan 1. Employment paperwork filled out 2. Patient will be started on Colace and MiraLax for constipation 3. Patient to follow-up with morgue keeper for regular Pap smears as recommended 4. Patient to return in 4-6 months 5. Basic labs along with lipid panel, TSH and hemoglobin A1c ordered at this time. Patient instructed go fasting for blood work. Orders: Orders AMB Vision Screening Today Z01.00 - Encounter for examination of eyes and vision without abnormal findings Hemoglobin A1c Today Z00.00 - Encounter for general adult medical examination without abnormal findings Liver Panel Today Z00.00 - Encounter for general adult medical examination without abnormal findings Magnesium Today Z00.00 - Encounter for general adult medical examination without abnormal findings Vitamin D 25-OH Total Today Z00.00 - Encounter for general adult medical examination without abnormal findings Vitamin B12 and Folate Today Z00.00 - Encounter for general adult medical examination without abnormal findings Comprehensive [place]. Panel Fast Today Z00.00 - Encounter for general adult medical examination without abnormal findings Complete Blood Count Auto Diff Today Z00.00 - Encounter for general adult medical examination without abnormal findings Lipid Panel Today Z00.00 - Encounter for general adult medical examination without abnormal findings TSH reflex Free T4 Today Z00.00 - Encounter for general adult medical examination without abnormal findings Referrals Gastroenterology Referral K59.00 - Constipation, unspecified HOUSING RELOCATION Referral Z12.4 - Encounter for screening for malignant neoplasm of cervix Medications: New docusate sodium (Colace) 100 mg PO BID 90 caps 1RF constipation polyethylene glycol 3350 (Miralax) 17 grams PO DAILY 238 grams 0RF constipation meloxicam 15 mg PO DAILY 90 tabs 1RF cyclobenzaprine 10 mg PO TID 90 tabs 1RF
== END 2024-10-15 11:42 | disposition home or self-care (01) ==
PROVIDERS: Visit Provider Internal Medicine
DX: Z00.00 Encounter for general adult medical examination without abnormal findings (principal); K59.00 Constipation, unspecified; Z12.4 Encounter for screening for malignant neoplasm of cervix

== ENCOUNTER → 2024-10-15 10:19 | Outpatient (BNVA) | payer OTHER, SELFPAY | PROVIDERS: Visit Provider Internal Medicine | DX: Z00.00 Encounter for general adult medical examination without abnormal findings (principal); K59.00 Constipation, unspecified | CPT/HCPCS: 96127; 99212 ==

== ENCOUNTER 2024-11-03 10:57 | Outpatient (AMB) | payer OTHER, SELFPAY ==
[2024-11-03 12:30] VITALS: BP 112/80; PULSE 84; TEMP 36.7; O2SAT 97; BMI 22.6
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
== END 2024-11-03 13:51 | disposition home or self-care (01) ==
PROVIDERS: PCP Physician Assistant Medical; Visit Provider Nurse Practitioner Family
DX: M79.18 Myalgia, other site (principal)

== ENCOUNTER → 2024-11-03 10:57 | Outpatient (BNVA) | payer OTHER, SELFPAY | PROVIDERS: PCP Physician Assistant Medical | DX: M79.18 Myalgia, other site (principal) | CPT/HCPCS: 99212 ==